=== PATIENT | female | born 1970 | race Asian ===

== ENCOUNTER → 2018-06-19 11:48 | Outpatient (CLI) | payer OTHER, SELFPAY ==
--- NOTE | 2018-06-19 | DI.MRI.S_ITS ---
PROCEDURE: MR SHOULDER RT WO CON INDICATIONS: RIGHT SHOULDER PAIN TECHNIQUE: Noncontrast oblique coronal T2 fast spin echo with fat saturation, oblique sagittal T1 spin echo and T2 fast spin echo with fat saturation, axial T1 spin echo and T2 fast spin echo with fat saturation through the shoulder. COMPARISON: [facility] [place], CR, XR SHOULDER 2+ VIEWS RIGHT, 06/08/2018, 13:16. FINDINGS: Image quality: Severely degraded by motion artifact, despite multiple attempts. Rotator cuff: Rotator cuff not well evaluated due to to motion degradation of images however there is a full-thickness tear of the supraspinatus tendon measuring 1.3 cm and the AP dimension as seen on sagittal image 8 series 13 and measures 1.4 cm on coronal image 9 series 12. Infraspinatus tendinopathy is present with interstitial tearing and partial thickness articular and bursal sided tear. The teres minor appears grossly intact. Subscapularis tendinopathy and thickening is seen, best on the axial images. There is borderline atrophy of the supraspinatus muscle Bones and bursae: No bone marrow contusions or fractures. Moderate acromioclavicular joint degeneration. The acromion demonstrates conventional anatomy, without an os acromiale. Capsule and soft tissues: The labrum is not well evaluated in the presence of severe motion artifact. There is probable circumferential fraying although the exam is essentially nondiagnostic for labral tear The long head of the biceps tendon demonstrates normal location and morphology. The rotator interval appears normal, without fibrosis. The coracohumeral ligament is normal in thickness. IMPRESSION: Severely motion degraded examination. Full-thickness tear of the supraspinatus tendon, with borderline muscle atrophy as discussed above. Infraspinatus tendinopathy, with partial thickness articular and bursal sided tear Subscapularis tendinopathy and thickening. Dictated by: Melvin Perdomo M.D. on 06/19/2018 at 12:48 Approved by: Melvin Perdomo M.D. on 06/19/2018 at 13:02
== END ==
PROVIDERS: Visit Provider Orthopaedic Surgery
DX: S46.011A Strain of muscle(s) and tendon(s) of the rotator cuff of right shoulder, initial encounter (principal); M25.511 Pain in right shoulder
CPT/HCPCS: 73221

== ENCOUNTER → 2020-10-27 11:10 | Outpatient (CLI) | payer OTHER, SELFPAY ==
[2020-10-27] MEDS: COVID-19 VACC #1, MRNA(MOD) 100 MCG/0.5 ML VIAL IM (11:14)
== END ==
PROVIDERS: Visit Provider Internal Medicine
DX: Z23 Encounter for immunization (principal)
CPT/HCPCS: 0011A; 91301

== ENCOUNTER → 2020-11-24 11:02 | Outpatient (CLI) | payer OTHER, SELFPAY ==
[2020-11-24] MEDS: COVID-19 VACC #2, MRNA(MOD) 100 MCG/0.5 ML VIAL IM (11:13)
== END ==
PROVIDERS: Visit Provider Internal Medicine
DX: Z23 Encounter for immunization (principal)
CPT/HCPCS: 0012A; 91301

== ENCOUNTER 2025-06-09 13:29 | Inpatient (IN) | payer OTHER, SELFPAY ==
[2025-06-09] VITALS (25 sets, daily range): BP systolic 108–156; BP diastolic 57–83; PULSE 80–105; RESP 8–65; TEMP 37–39.3; O2SAT 89–98; BMI 30.2
--- NOTE | 2025-06-09 13:50 | EKG_ITS ---
[facility] [address] [address] Test Date: 2025-06-09 Pat Name: Gerhard Echevarria Department: [facility] Room: Gender: Female Senior [employer]: : 1970 Requested By: Order Number: [id number] Reading MD: Vaughn Barboza MD Measurements Intervals [place] Rate: 98 P: 70 TX: 158 QRS: 61 QRSD: 86 T: 60 QT: 324 QTc: 413 Interpretive Statements Normal sinus rhythm Electronically Signed On 06-09-2025 14:36:49 PST by Vaughn Barboza MD
--- NOTE | 2025-06-09 13:50 | DI.RAD.S_ITS ---
PROCEDURE: XR CHEST 1V INDICATIONS: suspected sepsis TECHNIQUE: One view of the chest was acquired. COMPARISON: None. FINDINGS: Moderate bilateral diffuse peribronchial thickening and patchy opacities most notably in the lower lobes. Bronchopneumonia, early findings of pneumonia, viral infection, or other process should be considered. Follow-up is needed. Mildly enlarged cardiopericardial silhouette and mildly prominent mary, pulmonary vascular congestion, possible CHF and/or hilar lymph nodes. Right apical pleural thickening/scarring. No pneumothorax, no pleural effusion no lobar consolidation. IMPRESSION: Moderate peribronchial thickening and patchy opacities as discussed above. Mildly enlarged cardiopericardial silhouette, possible CHF. Follow-up is needed Dictated by: Nicholas Fritz M.D. on 06/09/2025 at 15:40 Approved by: Nicholas Fritz M.D. on 06/09/2025 at 15:43
--- NOTE | 2025-06-09 13:53 | DI.CT.S_ITS ---
PROCEDURE: CT CHEST ABD PEL W CON INDICATIONS: nausea/vomiting, fever and back pain TECHNIQUE: After the administration of intravenous contrast, 5 mm thick sections acquired from the lung apices to the symphysis. 5 mm coronal and sagittal reformats were performed, with additional 7 mm MIP reformats through the lungs. For radiation dose reduction, the following was used: automated exposure control, adjustment of mA and/or kV according to patient size. COMPARISON: None. FINDINGS: Image quality: Excellent. Some images are limited by patient motion, respiratory, beam hardening artifacts CHEST: Abnormal appearance with areas of atelectasis/consolidation, bronchiectasis most notably in the right upper lobe medially, a pickle posterior suggests chronic fibrotic changes, granulomatous disease, mycobacterium infection or other cause could be considered. Follow-up is needed. Moderate bilateral diffuse peribronchial thickening and patchy ground-glass opacities, bronchitis, viral infection, atypical pneumonia or other process should be considered. [id number] prominent pulmonary vessels, pulmonary vascular congestion, CHF with interstitial edema could be considered. Cardiomegaly with four-chamber enlargement. Small hiatal hernia with nonspecific wall thickening of the distal esophagus into the stomach, unchanged some of which may be artifact from partial nondistention although esophagitis, gastritis or other process could be considered. No pneumothorax, no pleural effusion, no pericardial effusion. Mild calcifications of the aortic arch. ABDOMEN: Markedly abnormal appearance of the right kidney with heterogeneous areas of decreased contrast enhancement suggest pyelonephritis. Large calcification right inferior pole measures up to 1.5 cm nonobstructing calculus. The right kidney is ptotic, low lying and rotated relative to the left. Mild to moderate right perinephric, proximal periureteral edema. Mild right hydronephrosis and proximal hydroureter without ureteral or bladder calculus. Findings are more likely related to urinary tract infection with ureteritis than passed stone or other cause of obstruction. Continued follow-up is needed. Left kidney enhance is normally without renal, ureteral calculus. Nonspecific wall thickening of the urinary bladder measures up to 8 mm some of which may be artifact from partial nondistention but with mild perivesicular edema raises the suspicion for cystitis. Mild nonspecific wall thickening distal rectum/anus commonly artifact from partial nondistention although proctitis, hemorrhoids or other anorectal lesion could be considered. Appendix is not nondilated within normal limits without CT evidence of appendicitis. Liver: Liver is normal in size. No CT evidence of focal hepatic lesion. Gallbladder: No radiopaque gallstones or wall thickening. Biliary ducts: No biliary dilation. Pancreas: No ductal dilation. Spleen: Size is within normal limits. Adrenal Glands: No adrenal nodules. Stomach and Bowel: Normal caliber, without significant wall thickening. Ventral Wall: No significant ventral hernia. Abdominal Nodes: No retroperitoneal or mesenteric adenopathy by size criteria. Vessels: Aorta and inferior vena cava are normal in size. PELVIS: Pelvic Organs: Unremarkable. Pelvic Nodes: No enlarged lymph nodes. Miscellaneous: No inguinal hernias are seen. IMPRESSION: Abnormal appearance of the right kidney as discussed above suspicious for pyelonephritis. Follow-up is needed. Nonobstructing right renal calculus. Wall thickening of the urinary bladder may indicate cystitis. In the chest, mild cardiomegaly, pulmonary vascular congestion, peribronchial thickening and patchy opacities as discussed above. Bronchiectasis and areas of atelectasis, consolidation and fibrotic changes in the right upper lobe as discussed above. Other findings as above. Dictated by: Nicholas Fritz M.D. on 06/09/2025 at 16:43 Approved by: Nicholas Fritz M.D. on 06/09/2025 at 16:52
--- NOTE | 2025-06-09 13:57 | ED.SEPSIS ---
HPI - Sepsis <PAM Davis Last Filed: 06/09/25 19:48> General Chief Complaint: Upper Respiratory Symptoms Mode of arrival: Wheelchair Source: patient Evaluation Sepsis Screen: Possible Severe Sepsis Risk Sepsis Infection Criteria Present: Suspected New Infection Sepsis Onset Time: 13:58 Narrative: Ms. Swathi Cloud is a pleasant 54-year-old female, speaks [employer], with a past medical history of hypertension, hyperlipidemia has not seen a doctor in over a year, is not taking any medications, possibly is supposed to be on a blood thinner who presents to the emergency department with her son for feeling sick x3 days. Patient reports she has been having shaking chills, right-sided upper back/flank pain, nausea vomiting and coughing. She is unable to keep down any food or water due to nonbloody nausea and vomiting. She is feeling short of breath. She denies chest pain diarrhea or constipation. Hospital supplied natural resources instructor is used for history but it is somewhat limited. Upon further history, it appears that patient has a history of issues with her gallbladder is where as initially I was informed that she had her gallbladder removed. <Magnolia Gerard DO - Last Filed: 06/10/25 01:56> Evaluation Narrative: Ms. Swathi Cloud is a pleasant 54-year-old female, speaks [employer], with a past medical history of hypertension, hyperlipidemia has not seen a doctor in over a year, is not taking any medications, possibly is supposed to be on a blood thinner who presents to the emergency department with her son for feeling sick x3 days. Patient reports she has been having shaking chills, right-sided upper back/flank pain, nausea vomiting and coughing. She is unable to keep down any food or water due to nonbloody nausea and vomiting. She is feeling short of breath. She denies chest pain diarrhea or constipation. Hospital supplied natural resources instructor is used for history but it is somewhat limited. Review of Systems <Carrie Witt PA-C - Last Filed: 06/09/25 19:48> Review of Systems ROS Unobtainable: All systems reviewed & are unremarkable except as noted in HPI and below Patient History <PAM Davis Last Filed: 06/09/25 19:48> Social History household members: spouse, family and children Smoking Status: Never smoker alcohol intake: never Smoking Status: Never smoker Exam <Carrie Witt PA-C - Last Filed: 06/09/25 19:48> Narrative Exam Narrative: GENERAL: 54 year old patient appears stated age. Well-developed patient. HEAD: Atraumatic. Normocephalic. EYES: PERRL. Extraocular motions intact. No scleral icterus. No injection or drainage. ENT: Nose without bleeding, purulent drainage. Throat with mild posterior oropharyngeal erythema, uvula is midline, airway is patent. NECK: Trachea midline. Cervical ROM intact. CARDIOVASCULAR: Increased rate and regular rhythm. RESPIRATORY: ?Increased respiratory rate and effort. Inspiratory crackles in right lower lobe with expiratory wheezing. GASTROINTESTINAL: Abdominal tenderness and right CVA region and right upper quadrant of the abdomen. Bowel sounds present. No rebound or guarding. EXTREMITIES: No LE edema. Brisk cap refill on fingertips. BACK: Reported right-sided thoracic pain and tenderness. No midline tenderness. NEURO: Alert, oriented, difficult to obtain history due to language barrier even with hospital natural resources instructor. No facial asymmetry. SKIN: No rash or erythema of visible areas Initial Vital Signs Initial Vital Signs: Vital Signs Temperature 102.7 F H 06/09/25 13:46 Pulse Rate 105 H 06/09/25 13:46 Respiratory Rate 28 H 06/09/25 13:46 Blood Pressure 156/83 H 06/09/25 13:46 Pulse Oximetry 97 06/09/25 13:46 Oxygen Delivery Method Room Air 06/09/25 13:46 <Rimma Candelaria, - Last Filed: 06/11/25 00:23> Initial Vital Signs Initial Vital Signs: Vital Signs Temperature 102.7 F H 06/09/25 13:46 Pulse Rate 105 H 06/09/25 13:46 Respiratory Rate 28 H 06/09/25 13:46 Blood Pressure 156/83 H 06/09/25 13:46 Pulse Oximetry 97 06/09/25 13:46 Oxygen Delivery Method Room Air 06/09/25 13:46 <Magnolia Gerard DO - Last Filed: 06/10/25 01:56> Initial Vital Signs Initial Vital Signs: Vital Signs Temperature 102.7 F H 06/09/25 13:46 Pulse Rate 105 H 06/09/25 13:46 Respiratory Rate 28 H 06/09/25 13:46 Blood Pressure 156/83 H 06/09/25 13:46 Pulse Oximetry 97 06/09/25 13:46 Oxygen Delivery Method Room Air 06/09/25 13:46 Course <Carrie Witt PA-C - Last Filed: 06/09/25 19:48> Orders Ordered: Acetaminophen (Acetaminophen 325 Mg Tablet) 650 mg PO Q6H PRN PRN Reason: Fever/Mild Pain (1-3) Last Admin: 06/10/25 19:01 Dose: 650 mg Documented By: Admin: 06/10/25 10:15 Dose: 650 mg Documented By: ALEC Hydrocodone Bitart/Acetaminophen (Hydrocodone/Acet 5/325 Tablet) 1 tab PO Q4H PRN PRN Reason: Pain, Moderate (4-6) Albuterol (Albuterol 2.5 Mg/3 Ml Neb (Adult)) 2.5 mg INH [id number] PRN PRN Reason: Shortness Of Breath Calcium Carbonate (Calcium Carbonate 500 Mg Tab) 1,000 mg PO Q4HR PRN PRN Reason: Dyspepsia Last Admin: 06/10/25 10:14 Dose: 1,000 mg Documented By: ALEC Enoxaparin Sodium (Enoxaparin 40 Mg/0.4 Ml Syringe) 40 mg SUBCUT DAILY [facility] Last Admin: 06/10/25 10:15 Dose: 40 mg Documented By: ALEC Sodium Chloride (Normal Saline 0.45%) 1,000 mls @ 100 mls/hr IV CONT [facility] Last Admin: 06/10/25 23:03 Dose: 100 mls/hr Documented By: Infusion: 06/10/25 22:25 Dose: Infused Documented By: Admin: 06/10/25 12:25 Dose: 100 mls/hr Documented By: Infusion: 06/10/25 12:25 Dose: Infused Documented By: Admin: 06/10/25 02:28 Dose: 100 mls/hr Documented By: Ceftriaxone Sodium 2,000 mg/ (Sodium Chloride) 100 mls @ 200 mls/hr IV Q24H [facility] Last Admin: 06/10/25 23:36 Dose: 200 mls/hr Documented By: ZULEIKA Morphine Sulfate (Morphine 4 Mg/Ml Inj) 3 mg IV Q2HR PRN PRN Reason: Pain, Severe (7-10) Naloxone HCl (Naloxone 0.4 Mg/Ml Vial) 0.2 mg IV Q2MIN PRN PRN Reason: Opiate Reversal Ondansetron HCl (Ondansetron 4 Mg Odt) 4 mg PO NOW PRN PRN Reason: Nausea And Vomiting Ondansetron HCl (Ondansetron 4 Mg/2 Ml Inj) 4 mg IV Q8HR PRN PRN Reason: Nausea And Vomiting Sodium Chloride (Sodium Chloride 0.9% Flush) 10 ml IV PRN PRN PRN Reason: Flush Sodium Chloride (Sodium Chloride 0.9% Flush) 10 ml IV BID TAWANNA Last Admin: 06/10/25 21:05 Dose: 10 ml Documented By: Admin: 06/10/25 10:15 Dose: 10 ml Documented By: ALEC Discontinued Medications Albuterol/Ipratropium (Albuterol/Ipratropium 3 Ml Ampul) 3 ml INH NOW ONE Stop: 06/09/25 13:57 Last Admin: 06/09/25 14:07 Dose: 3 ml Documented By: CRISTO Azithromycin (Azithromycin 250 Mg Tablet) 500 mg PO NOW ONE Stop: 06/09/25 17:03 Last Admin: 06/09/25 17:12 Dose: 500 mg Documented By: LISANDRA Al Hydrox/Mg Hydrox/Simethicone 30 ml/ Lidocaine HCl 15 ml 0 ml PO NOW ONE Stop: 06/10/25 12:21 Last Admin: 06/10/25 12:32 Dose: 45 ml Documented By: ALEC Sodium Chloride (Normal Saline 0.9%) 1,000 mls @ 1,000 mls/hr IV BOLUS ONE Stop: 06/09/25 14:48 Last Admin: 06/09/25 14:20 Dose: Not Given Documented By: CRISTO Sodium Chloride (Normal Saline 0.9%) 2,041.17 mls @ 1,360.78 mls/hr 30 ml/kg infuse over 90 min (2041.17 ml) IV NOW ONE Stop: 06/09/25 15:25 Last Infusion: 06/09/25 15:55 Dose: Infused Documented By: Admin: 06/09/25 14:08 Dose: 1,360.78 mls/hr Documented By: CRISTO Ceftriaxone Sodium 1,000 mg/ (Sodium Chloride) 100 mls @ 200 mls/hr IV NOW ONE Stop: 06/09/25 13:57 Last Infusion: 06/09/25 14:46 Dose: Infused Documented By: Admin: 06/09/25 14:08 Dose: 200 mls/hr Documented By: CRISTO Acetaminophen (Ofirmev) 1,000 mg in 100 mls @ 400 mls/hr IV NOW ONE Stop: 06/09/25 14:11 Last Infusion: 06/09/25 14:40 Dose: Infused Documented By: Admin: 06/09/25 14:08 Dose: 400 mls/hr Documented By: CRISTO Ceftriaxone Sodium 1,000 mg/ (Sodium Chloride) 100 mls @ 200 mls/hr IV NOW ONE Stop: 06/10/25 00:48 Last Infusion: 06/10/25 01:37 Dose: Infused Documented By: Admin: 06/10/25 00:59 Dose: 200 mls/hr Documented By: REX Ketorolac Tromethamine (Ketorolac 30 Mg/Ml Vial) 15 mg IV NOW ONE Stop: 06/10/25 00:48 Last Admin: 06/10/25 00:59 Dose: 15 mg Documented By: REX Morphine Sulfate (Morphine 4 Mg/Ml Inj) 4 mg IV NOW ONE Stop: 06/09/25 15:18 Last Admin: 06/09/25 15:25 Dose: 4 mg Documented By: LISANDRA Morphine Sulfate (Morphine 4 Mg/Ml Inj) 4 mg IV NOW ONE Stop: 06/09/25 18:23 Last Admin: 06/09/25 18:27 Dose: 4 mg Documented By: LISANDRA Ondansetron HCl (Ondansetron 4 Mg/2 Ml Inj) 4 mg IV NOW PRN PRN Reason: Nausea And Vomiting Last Admin: 06/09/25 14:07 Dose: 4 mg Documented By: CRISTO Ondansetron HCl (Ondansetron 4 Mg/2 Ml Inj) 4 mg IV NOW ONE Stop: 06/09/25 15:13 Last Admin: 06/09/25 15:18 Dose: 4 mg Documented By: LISANDRA Ondansetron HCl (Ondansetron 4 Mg/2 Ml Inj) 4 mg IV NOW ONE Stop: 06/09/25 21:21 Last Admin: 06/09/25 21:25 Dose: 4 mg Documented By: LS Potassium Chloride (Potassium Chloride 20 Meq Tab) 40 meq PO NOW ONE Stop: 06/10/25 11:16 Last Admin: 06/10/25 12:32 Dose: 40 meq Documented By: ALEC Vital Signs Vital signs: Vital Signs - 8 hr 06/09/25 18:00 06/09/25 18:00 06/09/25 18:30 Pulse Rate 80 Respiratory Rate 21 Blood Pressure 121/68 122/65 Pulse Oximetry 97 Oxygen Delivery Method Oxygen Flow Rate 06/09/25 18:30 06/09/25 19:00 06/09/25 19:00 Pulse Rate 86 81 Respiratory Rate 21 26 H Blood Pressure 118/75 Pulse Oximetry 94 97 Oxygen Delivery Method Nasal Cannula Oxygen Flow Rate 1 06/09/25 19:30 06/09/25 19:30 06/09/25 20:00 Pulse Rate 81 80 Respiratory Rate 27 H 15 Blood Pressure 109/62 Pulse Oximetry 96 96 Oxygen Delivery Method Nasal Cannula Nasal Cannula Oxygen Flow Rate 1 1 06/09/25 20:00 06/09/25 21:05 06/09/25 21:11 Pulse Rate 92 H Respiratory Rate Blood Pressure 111/67 144/81 H Pulse Oximetry Oxygen Delivery Method Oxygen Flow Rate 06/09/25 21:11 06/09/25 21:30 06/09/25 21:30 Pulse Rate 85 84 Respiratory Rate 32 H 29 H Blood Pressure 132/76 Pulse Oximetry 96 97 Oxygen Delivery Method Nasal Cannula Nasal Cannula Oxygen Flow Rate 1 1 06/09/25 22:00 06/09/25 22:00 06/09/25 22:30 Pulse Rate 85 Respiratory Rate 29 H Blood Pressure 133/72 122/66 Pulse Oximetry 96 Oxygen Delivery Method Nasal Cannula Oxygen Flow Rate 1 06/09/25 22:30 06/09/25 23:00 06/09/25 23:00 Pulse Rate 83 85 Respiratory Rate 14 30 H Blood Pressure 120/69 Pulse Oximetry 98 95 Oxygen Delivery Method Nasal Cannula Nasal Cannula Oxygen Flow Rate 1 1 06/09/25 23:30 06/09/25 23:30 06/10/25 00:00 Pulse Rate 87 Respiratory Rate 31 H Blood Pressure 122/67 117/58 L Pulse Oximetry 96 Oxygen Delivery Method Nasal Cannula Oxygen Flow Rate 1 06/10/25 00:00 06/10/25 00:13 06/10/25 00:13 Pulse Rate 84 84 Respiratory Rate 39 H 30 H Blood Pressure 115/58 L Pulse Oximetry 96 95 Oxygen Delivery Method Nasal Cannula Nasal Cannula Oxygen Flow Rate 1 1 06/10/25 00:30 06/10/25 00:30 Pulse Rate 81 Respiratory Rate 27 H Blood Pressure 116/68 Pulse Oximetry 96 Oxygen Delivery Method Nasal Cannula Oxygen Flow Rate 1 <Rimma Candelaria, DO - Last Filed: 06/11/25 00:23> Orders Ordered: Acetaminophen (Acetaminophen 325 Mg Tablet) 650 mg PO Q6H PRN PRN Reason: Fever/Mild Pain (1-3) Last Admin: 06/10/25 19:01 Dose: 650 mg Documented By: Admin: 06/10/25 10:15 Dose: 650 mg Documented By: ALEC Hydrocodone Bitart/Acetaminophen (Hydrocodone/Acet 5/325 Tablet) 1 tab PO Q4H PRN PRN Reason: Pain, Moderate (4-6) Albuterol (Albuterol 2.5 Mg/3 Ml Neb (Adult)) 2.5 mg INH [id number] PRN PRN Reason: Shortness Of Breath Calcium Carbonate (Calcium Carbonate 500 Mg Tab) 1,000 mg PO Q4HR PRN PRN Reason: Dyspepsia Last Admin: 06/10/25 10:14 Dose: 1,000 mg Documented By: ALEC Enoxaparin Sodium (Enoxaparin 40 Mg/0.4 Ml Syringe) 40 mg SUBCUT DAILY [facility] Last Admin: 06/10/25 10:15 Dose: 40 mg Documented By: ALEC Sodium Chloride (Normal Saline 0.45%) 1,000 mls @ 100 mls/hr IV CONT [facility] Last Admin: 06/10/25 23:03 Dose: 100 mls/hr Documented By: Infusion: 06/10/25 22:25 Dose: Infused Documented By: Admin: 06/10/25 12:25 Dose: 100 mls/hr Documented By: Infusion: 06/10/25 12:25 Dose: Infused Documented By: Admin: 06/10/25 02:28 Dose: 100 mls/hr Documented By: Ceftriaxone Sodium 2,000 mg/ (Sodium Chloride) 100 mls @ 200 mls/hr IV Q24H [facility] Last Admin: 06/10/25 23:36 Dose: 200 mls/hr Documented By: ZULEIKA Morphine Sulfate (Morphine 4 Mg/Ml Inj) 3 mg IV Q2HR PRN PRN Reason: Pain, Severe (7-10) Naloxone HCl (Naloxone 0.4 Mg/Ml Vial) 0.2 mg IV Q2MIN PRN PRN Reason: Opiate Reversal Ondansetron HCl (Ondansetron 4 Mg Odt) 4 mg PO NOW PRN PRN Reason: Nausea And Vomiting Ondansetron HCl (Ondansetron 4 Mg/2 Ml Inj) 4 mg IV Q8HR PRN PRN Reason: Nausea And Vomiting Sodium Chloride (Sodium Chloride 0.9% Flush) 10 ml IV PRN PRN PRN Reason: Flush Sodium Chloride (Sodium Chloride 0.9% Flush) 10 ml IV BID TAWANNA Last Admin: 06/10/25 21:05 Dose: 10 ml Documented By: Admin: 06/10/25 10:15 Dose: 10 ml Documented By: ALEC Discontinued Medications Albuterol/Ipratropium (Albuterol/Ipratropium 3 Ml Ampul) 3 ml INH NOW ONE Stop: 06/09/25 13:57 Last Admin: 06/09/25 14:07 Dose: 3 ml Documented By: CRISTO Azithromycin (Azithromycin 250 Mg Tablet) 500 mg PO NOW ONE Stop: 06/09/25 17:03 Last Admin: 06/09/25 17:12 Dose: 500 mg Documented By: LISANDRA Al Hydrox/Mg Hydrox/Simethicone 30 ml/ Lidocaine HCl 15 ml 0 ml PO NOW ONE Stop: 06/10/25 12:21 Last Admin: 06/10/25 12:32 Dose: 45 ml Documented By: ALEC Sodium Chloride (Normal Saline 0.9%) 1,000 mls @ 1,000 mls/hr IV BOLUS ONE Stop: 06/09/25 14:48 Last Admin: 06/09/25 14:20 Dose: Not Given Documented By: CRISTO Sodium Chloride (Normal Saline 0.9%) 2,041.17 mls @ 1,360.78 mls/hr 30 ml/kg infuse over 90 min (2041.17 ml) IV NOW ONE Stop: 06/09/25 15:25 Last Infusion: 06/09/25 15:55 Dose: Infused Documented By: Admin: 06/09/25 14:08 Dose: 1,360.78 mls/hr Documented By: CRISTO Ceftriaxone Sodium 1,000 mg/ (Sodium Chloride) 100 mls @ 200 mls/hr IV NOW ONE Stop: 06/09/25 13:57 Last Infusion: 06/09/25 14:46 Dose: Infused Documented By: Admin: 06/09/25 14:08 Dose: 200 mls/hr Documented By: CRISTO Acetaminophen (Ofirmev) 1,000 mg in 100 mls @ 400 mls/hr IV NOW ONE Stop: 06/09/25 14:11 Last Infusion: 06/09/25 14:40 Dose: Infused Documented By: Admin: 06/09/25 14:08 Dose: 400 mls/hr Documented By: CRISTO Ceftriaxone Sodium 1,000 mg/ (Sodium Chloride) 100 mls @ 200 mls/hr IV NOW ONE Stop: 06/10/25 00:48 Last Infusion: 06/10/25 01:37 Dose: Infused Documented By: Admin: 06/10/25 00:59 Dose: 200 mls/hr Documented By: REX Ketorolac Tromethamine (Ketorolac 30 Mg/Ml Vial) 15 mg IV NOW ONE Stop: 06/10/25 00:48 Last Admin: 06/10/25 00:59 Dose: 15 mg Documented By: REX Morphine Sulfate (Morphine 4 Mg/Ml Inj) 4 mg IV NOW ONE Stop: 06/09/25 15:18 Last Admin: 06/09/25 15:25 Dose: 4 mg Documented By: LISANDRA Morphine Sulfate (Morphine 4 Mg/Ml Inj) 4 mg IV NOW ONE Stop: 06/09/25 18:23 Last Admin: 06/09/25 18:27 Dose: 4 mg Documented By: LISANDRA Ondansetron HCl (Ondansetron 4 Mg/2 Ml Inj) 4 mg IV NOW PRN PRN Reason: Nausea And Vomiting Last Admin: 06/09/25 14:07 Dose: 4 mg Documented By: CRISTO Ondansetron HCl (Ondansetron 4 Mg/2 Ml Inj) 4 mg IV NOW ONE Stop: 06/09/25 15:13 Last Admin: 06/09/25 15:18 Dose: 4 mg Documented By: LISANDRA Ondansetron HCl (Ondansetron 4 Mg/2 Ml Inj) 4 mg IV NOW ONE Stop: 06/09/25 21:21 Last Admin: 06/09/25 21:25 Dose: 4 mg Documented By: REX Potassium Chloride (Potassium Chloride 20 Meq Tab) 40 meq PO NOW ONE Stop: 06/10/25 11:16 Last Admin: 06/10/25 12:32 Dose: 40 meq Documented By: ALEC Vital Signs Vital signs: Vital Signs - 8 hr 06/09/25 18:00 06/09/25 18:00 06/09/25 18:30 Pulse Rate 80 Respiratory Rate 21 Blood Pressure 121/68 122/65 Pulse Oximetry 97 Oxygen Delivery Method Oxygen Flow Rate 06/09/25 18:30 06/09/25 19:00 06/09/25 19:00 Pulse Rate 86 81 Respiratory Rate 21 26 H Blood Pressure 118/75 Pulse Oximetry 94 97 Oxygen Delivery Method Nasal Cannula Oxygen Flow Rate 1 06/09/25 19:30 06/09/25 19:30 06/09/25 20:00 Pulse Rate 81 80 Respiratory Rate 27 H 15 Blood Pressure 109/62 Pulse Oximetry 96 96 Oxygen Delivery Method Nasal Cannula Nasal Cannula Oxygen Flow Rate 1 1 06/09/25 20:00 06/09/25 21:05 06/09/25 21:11 Pulse Rate 92 H Respiratory Rate Blood Pressure 111/67 144/81 H Pulse Oximetry Oxygen Delivery Method Oxygen Flow Rate 06/09/25 21:11 06/09/25 21:30 06/09/25 21:30 Pulse Rate 85 84 Respiratory Rate 32 H 29 H Blood Pressure 132/76 Pulse Oximetry 96 97 Oxygen Delivery Method Nasal Cannula Nasal Cannula Oxygen Flow Rate 1 1 06/09/25 22:00 06/09/25 22:00 06/09/25 22:30 Pulse Rate 85 Respiratory Rate 29 H Blood Pressure 133/72 122/66 Pulse Oximetry 96 Oxygen Delivery Method Nasal Cannula Oxygen Flow Rate 1 06/09/25 22:30 06/09/25 23:00 06/09/25 23:00 Pulse Rate 83 85 Respiratory Rate 14 30 H Blood Pressure 120/69 Pulse Oximetry 98 95 Oxygen Delivery Method Nasal Cannula Nasal Cannula Oxygen Flow Rate 1 1 06/09/25 23:30 06/09/25 23:30 06/10/25 00:00 Pulse Rate 87 Respiratory Rate 31 H Blood Pressure 122/67 117/58 L Pulse Oximetry 96 Oxygen Delivery Method Nasal Cannula Oxygen Flow Rate 1 06/10/25 00:00 06/10/25 00:13 06/10/25 00:13 Pulse Rate 84 84 Respiratory Rate 39 H 30 H Blood Pressure 115/58 L Pulse Oximetry 96 95 Oxygen Delivery Method Nasal Cannula Nasal Cannula Oxygen Flow Rate 1 1 06/10/25 00:30 06/10/25 00:30 Pulse Rate 81 Respiratory Rate 27 H Blood Pressure 116/68 Pulse Oximetry 96 Oxygen Delivery Method Nasal Cannula Oxygen Flow Rate 1 <Magnolia Gerard, DO - Last Filed: 06/10/25 01:56> Orders Ordered: Acetaminophen (Acetaminophen 325 Mg Tablet) 650 mg PO Q6H PRN PRN Reason: Fever/Mild Pain (1-3) Last Admin: 06/10/25 19:01 Dose: 650 mg Documented By: Admin: 06/10/25 10:15 Dose: 650 mg Documented By: ALEC Hydrocodone Bitart/Acetaminophen (Hydrocodone/Acet 5/325 Tablet) 1 tab PO Q4H PRN PRN Reason: Pain, Moderate (4-6) Albuterol (Albuterol 2.5 Mg/3 Ml Neb (Adult)) 2.5 mg INH [id number] PRN PRN Reason: Shortness Of Breath Calcium Carbonate (Calcium Carbonate 500 Mg Tab) 1,000 mg PO Q4HR PRN PRN Reason: Dyspepsia Last Admin: 06/10/25 10:14 Dose: 1,000 mg Documented By: ALEC Enoxaparin Sodium (Enoxaparin 40 Mg/0.4 Ml Syringe) 40 mg SUBCUT DAILY [facility] Last Admin: 06/10/25 10:15 Dose: 40 mg Documented By: ALEC Sodium Chloride (Normal Saline 0.45%) 1,000 mls @ 100 mls/hr IV CONT [facility] Last Admin: 06/10/25 23:03 Dose: 100 mls/hr Documented By: Infusion: 06/10/25 22:25 Dose: Infused Documented By: Admin: 06/10/25 12:25 Dose: 100 mls/hr Documented By: Infusion: 06/10/25 12:25 Dose: Infused Documented By: Admin: 06/10/25 02:28 Dose: 100 mls/hr Documented By: Ceftriaxone Sodium 2,000 mg/ (Sodium Chloride) 100 mls @ 200 mls/hr IV Q24H [facility] Last Admin: 06/10/25 23:36 Dose: 200 mls/hr Documented By: ZULEIKA Morphine Sulfate (Morphine 4 Mg/Ml Inj) 3 mg IV Q2HR PRN PRN Reason: Pain, Severe (7-10) Naloxone HCl (Naloxone 0.4 Mg/Ml Vial) 0.2 mg IV Q2MIN PRN PRN Reason: Opiate Reversal Ondansetron HCl (Ondansetron 4 Mg Odt) 4 mg PO NOW PRN PRN Reason: Nausea And Vomiting Ondansetron HCl (Ondansetron 4 Mg/2 Ml Inj) 4 mg IV Q8HR PRN PRN Reason: Nausea And Vomiting Sodium Chloride (Sodium Chloride 0.9% Flush) 10 ml IV PRN PRN PRN Reason: Flush Sodium Chloride (Sodium Chloride 0.9% Flush) 10 ml IV BID TAWANNA Last Admin: 06/10/25 21:05 Dose: 10 ml Documented By: Admin: 06/10/25 10:15 Dose: 10 ml Documented By: ALEC Discontinued Medications Albuterol/Ipratropium (Albuterol/Ipratropium 3 Ml Ampul) 3 ml INH NOW ONE Stop: 06/09/25 13:57 Last Admin: 06/09/25 14:07 Dose: 3 ml Documented By: CRISTO Azithromycin (Azithromycin 250 Mg Tablet) 500 mg PO NOW ONE Stop: 06/09/25 17:03 Last Admin: 06/09/25 17:12 Dose: 500 mg Documented By: LISANDRA Al Hydrox/Mg Hydrox/Simethicone 30 ml/ Lidocaine HCl 15 ml 0 ml PO NOW ONE Stop: 06/10/25 12:21 Last Admin: 06/10/25 12:32 Dose: 45 ml Documented By: ALEC Sodium Chloride (Normal Saline 0.9%) 1,000 mls @ 1,000 mls/hr IV BOLUS ONE Stop: 06/09/25 14:48 Last Admin: 06/09/25 14:20 Dose: Not Given Documented By: CRISTO Sodium Chloride (Normal Saline 0.9%) 2,041.17 mls @ 1,360.78 mls/hr 30 ml/kg infuse over 90 min (2041.17 ml) IV NOW ONE Stop: 06/09/25 15:25 Last Infusion: 06/09/25 15:55 Dose: Infused Documented By: Admin: 06/09/25 14:08 Dose: 1,360.78 mls/hr Documented By: CRISTO Ceftriaxone Sodium 1,000 mg/ (Sodium Chloride) 100 mls @ 200 mls/hr IV NOW ONE Stop: 06/09/25 13:57 Last Infusion: 06/09/25 14:46 Dose: Infused Documented By: Admin: 06/09/25 14:08 Dose: 200 mls/hr Documented By: CRISTO Acetaminophen (Ofirmev) 1,000 mg in 100 mls @ 400 mls/hr IV NOW ONE Stop: 06/09/25 14:11 Last Infusion: 06/09/25 14:40 Dose: Infused Documented By: Admin: 06/09/25 14:08 Dose: 400 mls/hr Documented By: CRISTO Ceftriaxone Sodium 1,000 mg/ (Sodium Chloride) 100 mls @ 200 mls/hr IV NOW ONE Stop: 06/10/25 00:48 Last Infusion: 06/10/25 01:37 Dose: Infused Documented By: Admin: 06/10/25 00:59 Dose: 200 mls/hr Documented By: REX Ketorolac Tromethamine (Ketorolac 30 Mg/Ml Vial) 15 mg IV NOW ONE Stop: 06/10/25 00:48 Last Admin: 06/10/25 00:59 Dose: 15 mg Documented By: REX Morphine Sulfate (Morphine 4 Mg/Ml Inj) 4 mg IV NOW ONE Stop: 06/09/25 15:18 Last Admin: 06/09/25 15:25 Dose: 4 mg Documented By: LISANDRA Morphine Sulfate (Morphine 4 Mg/Ml Inj) 4 mg IV NOW ONE Stop: 06/09/25 18:23 Last Admin: 06/09/25 18:27 Dose: 4 mg Documented By: LISANDRA Ondansetron HCl (Ondansetron 4 Mg/2 Ml Inj) 4 mg IV NOW PRN PRN Reason: Nausea And Vomiting Last Admin: 06/09/25 14:07 Dose: 4 mg Documented By: CRISTO Ondansetron HCl (Ondansetron 4 Mg/2 Ml Inj) 4 mg IV NOW ONE Stop: 06/09/25 15:13 Last Admin: 06/09/25 15:18 Dose: 4 mg Documented By: LISANDRA Ondansetron HCl (Ondansetron 4 Mg/2 Ml Inj) 4 mg IV NOW ONE Stop: 06/09/25 21:21 Last Admin: 06/09/25 21:25 Dose: 4 mg Documented By: REX Potassium Chloride (Potassium Chloride 20 Meq Tab) 40 meq PO NOW ONE Stop: 06/10/25 11:16 Last Admin: 06/10/25 12:32 Dose: 40 meq Documented By: ALEC Vital Signs Vital signs: Vital Signs - 8 hr 06/09/25 18:00 06/09/25 18:00 06/09/25 18:30 Pulse Rate 80 Respiratory Rate 21 Blood Pressure 121/68 122/65 Pulse Oximetry 97 Oxygen Delivery Method Oxygen Flow Rate 06/09/25 18:30 06/09/25 19:00 06/09/25 19:00 Pulse Rate 86 81 Respiratory Rate 21 26 H Blood Pressure 118/75 Pulse Oximetry 94 97 Oxygen Delivery Method Nasal Cannula Oxygen Flow Rate 1 06/09/25 19:30 06/09/25 19:30 06/09/25 20:00 Pulse Rate 81 80 Respiratory Rate 27 H 15 Blood Pressure 109/62 Pulse Oximetry 96 96 Oxygen Delivery Method Nasal Cannula Nasal Cannula Oxygen Flow Rate 1 1 06/09/25 20:00 06/09/25 21:05 06/09/25 21:11 Pulse Rate 92 H Respiratory Rate Blood Pressure 111/67 144/81 H Pulse Oximetry Oxygen Delivery Method Oxygen Flow Rate 06/09/25 21:11 06/09/25 21:30 06/09/25 21:30 Pulse Rate 85 84 Respiratory Rate 32 H 29 H Blood Pressure 132/76 Pulse Oximetry 96 97 Oxygen Delivery Method Nasal Cannula Nasal Cannula Oxygen Flow Rate 1 1 06/09/25 22:00 06/09/25 22:00 06/09/25 22:30 Pulse Rate 85 Respiratory Rate 29 H Blood Pressure 133/72 122/66 Pulse Oximetry 96 Oxygen Delivery Method Nasal Cannula Oxygen Flow Rate 1 06/09/25 22:30 06/09/25 23:00 06/09/25 23:00 Pulse Rate 83 85 Respiratory Rate 14 30 H Blood Pressure 120/69 Pulse Oximetry 98 95 Oxygen Delivery Method Nasal Cannula Nasal Cannula Oxygen Flow Rate 1 1 06/09/25 23:30 06/09/25 23:30 06/10/25 00:00 Pulse Rate 87 Respiratory Rate 31 H Blood Pressure 122/67 117/58 L Pulse Oximetry 96 Oxygen Delivery Method Nasal Cannula Oxygen Flow Rate 1 06/10/25 00:00 06/10/25 00:13 06/10/25 00:13 Pulse Rate 84 84 Respiratory Rate 39 H 30 H Blood Pressure 115/58 L Pulse Oximetry 96 95 Oxygen Delivery Method Nasal Cannula Nasal Cannula Oxygen Flow Rate 1 1 06/10/25 00:30 06/10/25 00:30 Pulse Rate 81 Respiratory Rate 27 H Blood Pressure 116/68 Pulse Oximetry 96 Oxygen Delivery Method Nasal Cannula Oxygen Flow Rate 1 Sepsis Evaluation (ED) <Carrie Witt PA-C - Last Filed: 06/09/25 19:48> Triage Screening Sepsis Screen: Possible Severe Sepsis Risk Level 1 - Infection Sepsis Infection Criteria Present: Suspected New Infection Response It is my opinion that this patient have a likely infectious etiology for meeting sepsis criteria: Does Fluid calculation based on 30 mL/kg within 1hr of criteria: ABW used Antibiotics initiated within 1 hr of Sepis dx: Yes Tissue Perfusion Reassessed within 6 hrs of infusion start time: Yes Date of Tissue Perfusion Reassessment completed: 06/09/25 Time Tissue Perfusion Reassessment completed: 17:00 MDM - Sepsis <Carrie Witt PA-C - Last Filed: 06/09/25 19:48> Medical Records Medical records narrative: NONE Lab Data 06/10/25 04:29 06/10/25 04:29 Labs: Lab Results 06/09/25 06/09/25 06/09/25 Range/Units 14:00 14:21 16:50 WBC 11.7 H (4.5-11.0) X10^3/uL RBC 5.86 H (4.0-5.2) X10^6/uL Hgb 14.5 (12.0-16.0) g/dL Hct 44.7 (36-46) % MCV 76.3 L (80-100) fL MCH 24.7 L (26-34) PG MCHC 32.4 (30-36) % RDW 14.1 (11.6-14.8) % Plt Count 190 (150-400) X10^3/uL Neut % (Auto) 88.1 H (50-75) % Lymph % (Auto) 7.1 L (25-40) % Stearns % (Auto) 4.2 (3-14) % Eos % (Auto) 0.0 L (2-4) % Baso % (Auto) 0.6 (0-2) % Neut # (Auto) 88639 H (7033-0205) /uL Lymph # (Auto) 800 L (3012-6270) /uL Stearns # (Auto) 500 (0-900) /uL Eos # (Auto) 0 (0-450) /uL Baso # (Auto) 100 (0-100) /uL PT 13.1 H (9.4-12.5) SECONDS INR 1.2 (0.9-1.3) APTT 35 (25.1-36.5) SECONDS Sodium 139 (137-145) mmol/L Potassium 3.5 (3.4-5.1) mmol/L Chloride 105 (98-107) mmol/L Carbon Dioxide 22 (22-32) mmol/L BUN 16 (7-17) mg/dL Creatinine 0.91 (0.52-1.04) mg/dL Estimated GFR > 60 (>60) mL/min BUN/Creatinine Ratio 17.6 (6-22) Glucose 119 H (70-99) mg/dL Lactate 1.2 (0.7-2.1) mmol/L Calcium 9.3 (8.4-10.2) mg/dL Total Bilirubin 2.4 H (0.2-1.3) mg/dL AST 41 H (14-36) IU/L ALT 50 H (<35) IU/L Alkaline Phosphatase 128 H (38-126) U/L Total Creatine Kinase 89 (30-135) U/L Troponin I < 0.012 (0.01-0.034) ng/mL NT-Pro-B Natriuret Pep 526 H (<125) pg/mL Total Protein 8.0 (6.3-8.2) g/dL Albumin 4.3 (3.5-5.0) g/dL Globulin 3.7 (1.7-4.1) g/dL Albumin/Globulin Ratio 1.2 (1.0-2.8) Lipase 34 (23-300) U/L Procalcitonin 6.00 H (<0.5) ng/mL Urine RBC 1-5/hpf (0-5/HPF) Urine WBC 30-100/hpf H (0-5/HPF) Ur Squamous Epith Cells 1-5 /hpf (0-5/HPF) Ur Transition Epith Cell 0-1/hpf (0-5/HPF) Urine Bacteria Few (2-10) H (None) Ur Culture Indicated? Specimen cultured Vol Urine Centrifuged 10ml (spun) A.calcoaceticus-baumannii cmplx PCR Not detected (Not Detect) Chlamy pneumoniae PCR Not detected (Not Detect) Adenovirus (PCR) Not detected (Not Detect) Bacteroides fragilis Not detected (Not Detect) B. pertussis DNA (PCR) Not detected (Not Detect) B.parapertussis DNA PCR Not detected (Not Detecte) Jennie albicans (PCR) Not detected (Not Detect) Jennie auris (PCR) Not detected (Not Detect) C. glabrata (PCR) Not detected (Not Detect) C. krusei (PCR) Not detected (Not Detect) C. parapsilosis (PCR) Not detected (Not Detect) C. tropicalis (PCR) Not detected (Not Detect) Coronavirus OC43 (PCR) Not detected (Not Detect) Coronavirus HKU1 (PCR) Not detected (Not Detect) Coronavirus 229E (PCR) Not detected (Not Detect) SARS-CoV-2 (PCR) Not detected (Not Detecte) Coronavirus NL63 (PCR) Not detected (Not Detect) C. neoform/gattii (PCR) Not detected (Not Detect) Enterobacterales (PCR) Detected (Not Detect) E. cloacae complex PCR Not detected (Not Detect) Enterococc faecalis PCR Not detected (Not Detect) Enterococc faecium PCR Not detected (Not Detect) E. coli (PCR) Detected (Not Detect) H. influenzae (PCR) Not detected (Not Detect) Human Metapneumovir PCR Not detected (Not Detect) Influenza Type A (PCR) Not detected (Not Detect) Influenza Type B (PCR) Not detected (Not Detect) Klebsiella aerogenes (PCR) Not detected (Not Detect) Klebsiella oxytoca PCR Not detected (Not Detect) Klebsiella pneumoniae Not detected (Not Detect) List. monocytogenes PCR Not detected (Not Detect) M. pneumoniae (PCR) Not detected (Not Detect) N. meningitidis (PCR) Not detected (Not Detect) Parainfluenza 1 (PCR) Not detected (Not Detect) Parainfluenza 2 (PCR) Not detected (Not Detect) Parainfluenza 3 (PCR) Not detected (Not Detect) Parainfluenza 4 (PCR) Not detected (Not Detect) Proteus species (PCR) Not detected (Not Detect) RSV (PCR) Not detected (Not Detect) Entero/Rhino (PCR) Not detected (Not Detect) Salmonella spp. (PCR) Not detected (Not Detect) Serratia marcescens PCR Not detected (Not Detect) Staphylococcus sp PCR Not detected (Not Detect) Staph aureus (PCR) Not detected (Not Detect) mecA/C & MREJ Resist Gene Not applicable (Not Detect) mecA/C-Methicil Resis Gene Not applicable (Not Detect) mcr-1 Colistin Res Gene PCR Not detected (Not Detect) Staph epidermidis (PCR) Not detected (Not Detect) Staph lugdunensis PCR Not detected (Not Detect) S. maltophilia (PCR) Not detected (Not Detect) Streptococcus sp PCR Not detected (Not Detect) Group A Strep (PCR) Not detected (Not Detect) Strep agalactiae (PCR) Not detected (Not Detect) Strep pneumoniae (PCR) Not detected (Not Detect) P. aeruginosa (PCR) Not detected (Not Detect) Ralph/B-Vanco Res Genes Not applicable (Not Detect) blaIMP Car res Gene PCR Not detected (Not Detect) KPC-Carbap Res Gene PCR Not detected (Not Detect) blaNDM Car Res Gene PCR Not detected (Not Detect) OXA-48 Carbapenem Resis Gene (PCR) Not detected (Not Detect) blaVIM Car Res Gene PCR Not detected (Not Detect) CTX-M Gene Resistance (PCR) Not detected (Not Detect) Urine Dip Bedside Urine Glucose Negative Bedside Urine Bilirubin - Negative Bedside Urine Ketone +++ 80 Urine Specific [place] 1.010 Bedside Urine Occult Blood +++ Bedside Urine pH 6.0 Bedside Urine Protein ++ 100 Bedside Urine Urobilinogen +/- 1mg Bedside Urine Nitrite + Positive Bedside Urine Leukocytes + [address] C/A/P: Radiologist's Impression: PROCEDURE: CT CHEST ABD PEL W CON INDICATIONS: nausea/vomiting, fever and back pain TECHNIQUE: After the administration of intravenous contrast, 5 mm thick sections acquired from the lung apices to the symphysis. 5 mm coronal and sagittal reformats were performed, with additional 7 mm MIP reformats through the lungs. For radiation dose reduction, the following was used: automated exposure control, adjustment of mA and/or kV according to patient size. COMPARISON: None. FINDINGS: Image quality: Excellent. Some images are limited by patient motion, respiratory, beam hardening artifacts CHEST: Abnormal appearance with areas of atelectasis/consolidation, bronchiectasis most notably in the right upper lobe medially, a pickle posterior suggests chronic fibrotic changes, granulomatous disease, mycobacterium infection or other cause could be considered. Follow-up is needed. Moderate bilateral diffuse peribronchial thickening and patchy ground-glass opacities, bronchitis, viral infection, atypical pneumonia or other process should be considered. Bryo-ba-kowsndanux prominent pulmonary vessels, pulmonary vascular congestion, CHF with interstitial edema could be considered. Cardiomegaly with four-chamber enlargement. Small hiatal hernia with nonspecific wall thickening of the distal esophagus into the stomach, unchanged some of which may be artifact from partial nondistention although esophagitis, gastritis or other process could be considered. No pneumothorax, no pleural effusion, no pericardial effusion. Mild calcifications of the aortic arch. ABDOMEN: Markedly abnormal appearance of the right kidney with heterogeneous areas of decreased contrast enhancement suggest pyelonephritis. Large calcification right inferior pole measures up to 1.5 cm nonobstructing calculus. The right kidney is ptotic, low lying and rotated relative to the left. Mild to moderate right perinephric, proximal periureteral edema. Mild right hydronephrosis and proximal hydroureter without ureteral or bladder calculus. Findings are more likely related to urinary tract infection with ureteritis than passed stone or other cause of obstruction. Continued follow-up is needed. Left kidney enhance is normally without renal, ureteral calculus. Nonspecific wall thickening of the urinary bladder measures up to 8 mm some of which may be artifact from partial nondistention but with mild perivesicular edema raises the suspicion for cystitis. Mild nonspecific wall thickening distal rectum/anus commonly artifact from partial nondistention although proctitis, hemorrhoids or other anorectal lesion could be considered. Appendix is not nondilated within normal limits without CT evidence of appendicitis. Liver: Liver is normal in size. No CT evidence of focal hepatic lesion. Gallbladder: No radiopaque gallstones or wall thickening. Biliary ducts: No biliary dilation. Pancreas: No ductal dilation. Spleen: Size is within normal limits. Adrenal Glands: No adrenal nodules. Stomach and Bowel: Normal caliber, without significant wall thickening. Ventral Wall: No significant ventral hernia. Abdominal Nodes: No retroperitoneal or mesenteric adenopathy by size criteria. Vessels: Aorta and inferior vena cava are normal in size. PELVIS: Pelvic Organs: Unremarkable. Pelvic Nodes: No enlarged lymph nodes. Miscellaneous: No inguinal hernias are seen. IMPRESSION: Abnormal appearance of the right kidney as discussed above suspicious for pyelonephritis. Follow-up is needed. Nonobstructing right renal calculus. Wall thickening of the urinary bladder may indicate cystitis. In the chest, mild cardiomegaly, pulmonary vascular congestion, peribronchial thickening and patchy opacities as discussed above. Bronchiectasis and areas of atelectasis, consolidation and fibrotic changes in the right upper lobe as discussed above. Other findings as above. Dictated by: Nicholas Fritz M.D. on 06/09/2025 at 16:43 Approved by: Nicholas Fritz M.D. on 06/09/2025 at 16:52 RUQ US: Radiologist's Impression: PROCEDURE: US ABDOMEN LIMITED INDICATIONS: sepsis; elevated LFTS; check gallbladder; has pyelo TECHNIQUE: Real-time focused scanning was performed of the abdomen, with image documentation. COMPARISON: [facility], CT, CT CHEST ABD PEL W CON, 06/09/2025, 14:48. FINDINGS: Liver measures 15 cm. Heterogeneous increased echogenicity. Unremarkable ultrasound appearance of the gallbladder. No discrete stones. CBD measures 11 mm. Mildly prominent pancreatic duct at 3 mm. Right kidney is partially seen and appears heterogeneous. Inferior right renal calculus measures 1.4 cm. IMPRESSION: Dilated CBD. Consider MRCP Unremarkable sonographic appearance of the gallbladder. Heterogeneous increased echogenicity of the liver, nonspecific possibly heterogeneous steatosis. Abdominal MRI could clarify if needed. Heterogeneous right kidney with inferior pole calculus better assessed on CT Dictated by: Andrew Song M.D. on 06/09/2025 at 18:23 Approved by: Andrew Song M.D. on 06/09/2025 at 18:26 [facility] Narrative Medical decision making narrative: 54-year-old female, speaks Tagalog, with a past medical history of hypertension, hyperlipidemia, cholecystectomy has not seen a doctor in over a year, is not taking any medications, possibly is supposed to be on a blood thinner who presents to the emergency department with her son for feeling sick x3 days. Patient reports she has been having shaking chills, right-sided upper back/flank pain, nausea vomiting and coughing. Differential diagnosis includes but is not limited to sepsis due to pneumonia, ureterolithiasis, pyelonephritis, gastroenteritis, bronchitis, etc. On exam patient is not in acute distress but she is ill-appearing, she is febrile tachycardic tachypneic, blood pressure is 156/83. She has inspiratory crackles and expiratory wheezes in the right lower lobe, she is reporting right-sided flank pain nausea and vomiting for 3 days. Sepsis order set initiated, we will treat with 30 mL/kilogram IV fluids, 1 g ceftriaxone as at this time I am concerned for possible pneumonia versus pyelo versus other in addition to IV acetaminophen and nausea medications. Upon further history taking, patient's son informed me that patient actually has not had her gallbladder removed but has had gallbladder problems in the past therefore cholecystitis is on the differential. Labs reveal elevated WBC count 11.7, normal platelets 190. Sodium 130, potassium 3.5, BUN 16 creatinine 0.91. Normal lactate 1.2. Elevated procalcitonin 6.0. Normal lipase 34. BNP is elevated 526, troponin is negative/undetectable. Patient has elevated total bilirubin 2.4, AST 41, ALT 50, alkaline phosphatase 128. Repeat physical exam reveals right upper quadrant tenderness. Patient is continuing to have nausea and additional 4 mg Zofran ordered. 1700: On reassessment of patient her pain is significantly improved, perfusion is adequate with brisk cap refill on fingertips. CT reveals abnormal appearance of right kidney suspicious for pyelonephritis, nonobstructing right renal calculus, wall thickening of the urinary bladder, in the chest there are patchy opacities. Overall workup is consistent with pyelonephritis in addition to atypical pneumonia, we will add on azithromycin, patient already received ceftriaxone. We will also obtain right upper quadrant ultrasound to rule out gallbladder abnormality, CT does not reveal abnormality however given elevated bilirubin and reported history of gallbladder problems we will assess prior to disposition. Abdominal ultrasound reveals dilated CBD, consider MRCP, otherwise unremarkable sonographic appearance of the gallbladder, there is heterogeneous increased echogenicity of the liver, nonspecific possibly heterogeneous steatosis, abdominal MRI could clarify. 1900: Discussed ultrasound result with the patient, discussed need for MRCP, she is agreeable, MRCP scheduled for a p.m. tonight, case discussed with the nighttime attending physician Dr. Gerard due ot shift change. Hospitalist supplied natural resources instructor used for all patient encounters. 1944 Dr gerard <Rimma Candelaria, DO - Last Filed: 06/11/25 00:23> Lab Data Labs: Lab Results 06/09/25 06/09/25 06/09/25 Range/Units 14:00 14:21 16:50 WBC 11.7 H (4.5-11.0) X10^3/uL RBC 5.86 H (4.0-5.2) X10^6/uL Hgb 14.5 (12.0-16.0) g/dL Hct 44.7 (36-46) % MCV 76.3 L (80-100) fL MCH 24.7 L (26-34) PG MCHC 32.4 (30-36) % RDW 14.1 (11.6-14.8) % Plt Count 190 (150-400) X10^3/uL Neut % (Auto) 88.1 H (50-75) % Lymph % (Auto) 7.1 L (25-40) % Stearns % (Auto) 4.2 (3-14) % Eos % (Auto) 0.0 L (2-4) % Baso % (Auto) 0.6 (0-2) % Neut # (Auto) 98383 H (2372-0482) /uL Lymph # (Auto) 800 L (5374-2113) /uL Stearns # (Auto) 500 (0-900) /uL Eos # (Auto) 0 (0-450) /uL Baso # (Auto) 100 (0-100) /uL PT 13.1 H (9.4-12.5) SECONDS INR 1.2 (0.9-1.3) APTT 35 (25.1-36.5) SECONDS Sodium 139 (137-145) mmol/L Potassium 3.5 (3.4-5.1) mmol/L Chloride 105 (98-107) mmol/L Carbon Dioxide 22 (22-32) mmol/L BUN 16 (7-17) mg/dL Creatinine 0.91 (0.52-1.04) mg/dL Estimated GFR > 60 (>60) mL/min BUN/Creatinine Ratio 17.6 (6-22) Glucose 119 H (70-99) mg/dL Lactate 1.2 (0.7-2.1) mmol/L Calcium 9.3 (8.4-10.2) mg/dL Total Bilirubin 2.4 H (0.2-1.3) mg/dL AST 41 H (14-36) IU/L ALT 50 H (<35) IU/L Alkaline Phosphatase 128 H (38-126) U/L Total Creatine Kinase 89 (30-135) U/L Troponin I < 0.012 (0.01-0.034) ng/mL NT-Pro-B Natriuret Pep 526 H (<125) pg/mL Total Protein 8.0 (6.3-8.2) g/dL Albumin 4.3 (3.5-5.0) g/dL Globulin 3.7 (1.7-4.1) g/dL Albumin/Globulin Ratio 1.2 (1.0-2.8) Lipase 34 (23-300) U/L Procalcitonin 6.00 H (<0.5) ng/mL Urine RBC 1-5/hpf (0-5/HPF) Urine WBC 30-100/hpf H (0-5/HPF) Ur Squamous Epith Cells 1-5 /hpf (0-5/HPF) Ur Transition Epith Cell 0-1/hpf (0-5/HPF) Urine Bacteria Few (2-10) H (None) Ur Culture Indicated? Specimen cultured Vol Urine Centrifuged 10ml (spun) A.calcoaceticus-baumannii cmplx PCR Not detected (Not Detect) Chlamy pneumoniae PCR Not detected (Not Detect) Adenovirus (PCR) Not detected (Not Detect) Bacteroides fragilis Not detected (Not Detect) B. pertussis DNA (PCR) Not detected (Not Detect) B.parapertussis DNA PCR Not detected (Not Detecte) Jennie albicans (PCR) Not detected (Not Detect) Jennie auris (PCR) Not detected (Not Detect) C. glabrata (PCR) Not detected (Not Detect) C. krusei (PCR) Not detected (Not Detect) C. parapsilosis (PCR) Not detected (Not Detect) C. tropicalis (PCR) Not detected (Not Detect) Coronavirus OC43 (PCR) Not detected (Not Detect) Coronavirus HKU1 (PCR) Not detected (Not Detect) Coronavirus 229E (PCR) Not detected (Not Detect) SARS-CoV-2 (PCR) Not detected (Not Detecte) Coronavirus NL63 (PCR) Not detected (Not Detect) C. neoform/gattii (PCR) Not detected (Not Detect) Enterobacterales (PCR) Detected (Not Detect) E. cloacae complex PCR Not detected (Not Detect) Enterococc faecalis PCR Not detected (Not Detect) Enterococc faecium PCR Not detected (Not Detect) E. coli (PCR) Detected (Not Detect) H. influenzae (PCR) Not detected (Not Detect) Human Metapneumovir PCR Not detected (Not Detect) Influenza Type A (PCR) Not detected (Not Detect) Influenza Type B (PCR) Not detected (Not Detect) Klebsiella aerogenes (PCR) Not detected (Not Detect) Klebsiella oxytoca PCR Not detected (Not Detect) Klebsiella pneumoniae Not detected (Not Detect) List. monocytogenes PCR Not detected (Not Detect) M. pneumoniae (PCR) Not detected (Not Detect) N. meningitidis (PCR) Not detected (Not Detect) Parainfluenza 1 (PCR) Not detected (Not Detect) Parainfluenza 2 (PCR) Not detected (Not Detect) Parainfluenza 3 (PCR) Not detected (Not Detect) Parainfluenza 4 (PCR) Not detected (Not Detect) Proteus species (PCR) Not detected (Not Detect) RSV (PCR) Not detected (Not Detect) Entero/Rhino (PCR) Not detected (Not Detect) Salmonella spp. (PCR) Not detected (Not Detect) Serratia marcescens PCR Not detected (Not Detect) Staphylococcus sp PCR Not detected (Not Detect) Staph aureus (PCR) Not detected (Not Detect) mecA/C & MREJ Resist Gene Not applicable (Not Detect) mecA/C-Methicil Resis Gene Not applicable (Not Detect) mcr-1 Colistin Res Gene PCR Not detected (Not Detect) Staph epidermidis (PCR) Not detected (Not Detect) Staph lugdunensis PCR Not detected (Not Detect) S. maltophilia (PCR) Not detected (Not Detect) Streptococcus sp PCR Not detected (Not Detect) Group A Strep (PCR) Not detected (Not Detect) Strep agalactiae (PCR) Not detected (Not Detect) Strep pneumoniae (PCR) Not detected (Not Detect) P. aeruginosa (PCR) Not detected (Not Detect) Ralph/B-Vanco Res Genes Not applicable (Not Detect) blaIMP Car res Gene PCR Not detected (Not Detect) KPC-Carbap Res Gene PCR Not detected (Not Detect) blaNDM Car Res Gene PCR Not detected (Not Detect) OXA-48 Carbapenem Resis Gene (PCR) Not detected (Not Detect) blaVIM Car Res Gene PCR Not detected (Not Detect) CTX-M Gene Resistance (PCR) Not detected (Not Detect) Urine Dip Bedside Urine Glucose Negative Bedside Urine Bilirubin - Negative Bedside Urine Ketone +++ 80 Urine Specific [place] 1.010 Bedside Urine Occult Blood +++ Bedside Urine pH 6.0 Bedside Urine Protein ++ 100 Bedside Urine Urobilinogen +/- 1mg Bedside Urine Nitrite + Positive Bedside Urine Leukocytes + 70 Esterase ECG Data Attestation: I personally reviewed and interpreted this ECG as follows: Interpretation: Sinus rhythm rate of 98 RI 158 QRS 868 QTC of [address]-elevation or depression. <Magnolia Gerard DO - Last Filed: 06/10/25 01:56> Lab Data Labs: Lab Results 06/09/25 06/09/25 06/09/25 Range/Units 14:00 14:21 16:50 WBC 11.7 H (4.5-11.0) X10^3/uL RBC 5.86 H (4.0-5.2) X10^6/uL Hgb 14.5 (12.0-16.0) g/dL Hct 44.7 (36-46) % MCV 76.3 L (80-100) fL MCH 24.7 L (26-34) PG MCHC 32.4 (30-36) % RDW 14.1 (11.6-14.8) % Plt Count 190 (150-400) X10^3/uL Neut % (Auto) 88.1 H (50-75) % Lymph % (Auto) 7.1 L (25-40) % Stearns % (Auto) 4.2 (3-14) % Eos % (Auto) 0.0 L (2-4) % Baso % (Auto) 0.6 (0-2) % Neut # (Auto) 55346 H (5207-2780) /uL Lymph # (Auto) 800 L (5497-2853) /uL Stearns # (Auto) 500 (0-900) /uL Eos # (Auto) 0 (0-450) /uL Baso # (Auto) 100 (0-100) /uL PT 13.1 H (9.4-12.5) SECONDS INR 1.2 (0.9-1.3) APTT 35 (25.1-36.5) SECONDS Sodium 139 (137-145) mmol/L Potassium 3.5 (3.4-5.1) mmol/L Chloride 105 (98-107) mmol/L Carbon Dioxide 22 (22-32) mmol/L BUN 16 (7-17) mg/dL Creatinine 0.91 (0.52-1.04) mg/dL Estimated GFR > 60 (>60) mL/min BUN/Creatinine Ratio 17.6 (6-22) Glucose 119 H (70-99) mg/dL Lactate 1.2 (0.7-2.1) mmol/L Calcium 9.3 (8.4-10.2) mg/dL Total Bilirubin 2.4 H (0.2-1.3) mg/dL AST 41 H (14-36) IU/L ALT 50 H (<35) IU/L Alkaline Phosphatase 128 H (38-126) U/L Total Creatine Kinase 89 (30-135) U/L Troponin I < 0.012 (0.01-0.034) ng/mL NT-Pro-B Natriuret Pep 526 H (<125) pg/mL Total Protein 8.0 (6.3-8.2) g/dL Albumin 4.3 (3.5-5.0) g/dL Globulin 3.7 (1.7-4.1) g/dL Albumin/Globulin Ratio 1.2 (1.0-2.8) Lipase 34 (23-300) U/L Procalcitonin 6.00 H (<0.5) ng/mL Urine RBC 1-5/hpf (0-5/HPF) Urine WBC 30-100/hpf H (0-5/HPF) Ur Squamous Epith Cells 1-5 /hpf (0-5/HPF) Ur Transition Epith Cell 0-1/hpf (0-5/HPF) Urine Bacteria Few (2-10) H (None) Ur Culture Indicated? Specimen cultured Vol Urine Centrifuged 10ml (spun) A.calcoaceticus-baumannii cmplx PCR Not detected (Not Detect) Chlamy pneumoniae PCR Not detected (Not Detect) Adenovirus (PCR) Not detected (Not Detect) Bacteroides fragilis Not detected (Not Detect) B. pertussis DNA (PCR) Not detected (Not Detect) B.parapertussis DNA PCR Not detected (Not Detecte) Jennie albicans (PCR) Not detected (Not Detect) Jennie auris (PCR) Not detected (Not Detect) C. glabrata (PCR) Not detected (Not Detect) C. krusei (PCR) Not detected (Not Detect) C. parapsilosis (PCR) Not detected (Not Detect) C. tropicalis (PCR) Not detected (Not Detect) Coronavirus OC43 (PCR) Not detected (Not Detect) Coronavirus HKU1 (PCR) Not detected (Not Detect) Coronavirus 229E (PCR) Not detected (Not Detect) SARS-CoV-2 (PCR) Not detected (Not Detecte) Coronavirus NL63 (PCR) Not detected (Not Detect) C. neoform/gattii (PCR) Not detected (Not Detect) Enterobacterales (PCR) Detected (Not Detect) E. cloacae complex PCR Not detected (Not Detect) Enterococc faecalis PCR Not detected (Not Detect) Enterococc faecium PCR Not detected (Not Detect) E. coli (PCR) Detected (Not Detect) H. influenzae (PCR) Not detected (Not Detect) Human Metapneumovir PCR Not detected (Not Detect) Influenza Type A (PCR) Not detected (Not Detect) Influenza Type B (PCR) Not detected (Not Detect) Klebsiella aerogenes (PCR) Not detected (Not Detect) Klebsiella oxytoca PCR Not detected (Not Detect) Klebsiella pneumoniae Not detected (Not Detect) List. monocytogenes PCR Not detected (Not Detect) M. pneumoniae (PCR) Not detected (Not Detect) N. meningitidis (PCR) Not detected (Not Detect) Parainfluenza 1 (PCR) Not detected (Not Detect) Parainfluenza 2 (PCR) Not detected (Not Detect) Parainfluenza 3 (PCR) Not detected (Not Detect) Parainfluenza 4 (PCR) Not detected (Not Detect) Proteus species (PCR) Not detected (Not Detect) RSV (PCR) Not detected (Not Detect) Entero/Rhino (PCR) Not detected (Not Detect) Salmonella spp. (PCR) Not detected (Not Detect) Serratia marcescens PCR Not detected (Not Detect) Staphylococcus sp PCR Not detected (Not Detect) Staph aureus (PCR) Not detected (Not Detect) mecA/C & MREJ Resist Gene Not applicable (Not Detect) mecA/C-Methicil Resis Gene Not applicable (Not Detect) mcr-1 Colistin Res Gene PCR Not detected (Not Detect) Staph epidermidis (PCR) Not detected (Not Detect) Staph lugdunensis PCR Not detected (Not Detect) S. maltophilia (PCR) Not detected (Not Detect) Streptococcus sp PCR Not detected (Not Detect) Group A Strep (PCR) Not detected (Not Detect) Strep agalactiae (PCR) Not detected (Not Detect) Strep pneumoniae (PCR) Not detected (Not Detect) P. aeruginosa (PCR) Not detected (Not Detect) Ralph/B-Vanco Res Genes Not applicable (Not Detect) blaIMP Car res Gene PCR Not detected (Not Detect) KPC-Carbap Res Gene PCR Not detected (Not Detect) blaNDM Car Res Gene PCR Not detected (Not Detect) OXA-48 Carbapenem Resis Gene (PCR) Not detected (Not Detect) blaVIM Car Res Gene PCR Not detected (Not Detect) CTX-M Gene Resistance (PCR) Not detected (Not Detect) Urine Dip Bedside Urine Glucose Negative Bedside Urine Bilirubin - Negative Bedside Urine Ketone +++ 80 Urine Specific [place] 1.010 Bedside Urine Occult Blood +++ Bedside Urine pH 6.0 Bedside Urine Protein ++ 100 Bedside Urine Urobilinogen +/- 1mg Bedside Urine Nitrite + Positive Bedside Urine Leukocytes + 70 Esterase Imaging Data MRCP: Radiologist's Impression: PROCEDURE: MR ABDOMEN WO/W CON INDICATIONS: sepsis; dilated CBD on US; has pyelo and pneumonia as well TECHNIQUE: Coronal HASTE, axial 2D FLASH in- and [id number]; axial breath-hold T2 FSE. Dynamic axial VIBE during the administration of contrast; post-contrast coronal VIBE or 2D FLASH with fat saturation from the hepatic dome to the iliac crests. Optional diffusion weighted imaging and ADC may be performed. COMPARISON: [facility], US, US ABDOMEN LIMITED, 06/09/2025, 17:40. [facility], CT, CT CHEST ABD PEL W CON, 06/09/2025, 14:48. FINDINGS: Image quality: Significant respiratory motion artifact degrades image quality. Lung bases: Bibasilar atelectasis. No substantial pleural effusion. Liver: No solid mass. Mild signal dropout on the out of phase images suggestive of mild hepatic steatosis. Gallbladder: Gallbladder appears moderately distended. No evidence to suggest gallbladder wall thickening or hyperemia. No evidence to suggest intraluminal filling defect/gallstones. No pericholecystic inflammation or fluid noted. Biliary ducts: Common bile duct is dilated measuring approximately 1.1 cm in diameter. No intraluminal filling defects identified. There is smooth tapering near the ampulla. There are possible small intraluminal filling defects versus artifact at the bifurcation of the main hepatic duct into the right and left hepatic ducts. Artifact favored. Otherwise, no significant intrahepatic biliary ductal dilatation seen. Pancreas: No ductal dilation. No peripancreatic inflammatory changes. Spleen: Size is within normal limits. Adrenal Glands: No adrenal nodules. Kidneys and Ureters: Heterogeneous enhancement of the right renal parenchyma with moderate right perinephric inflammation. There is also mild diffusion restriction involving the right kidney relative to the left. Findings are consistent with reported pyelonephritis seen on CT from earlier same day. No hydronephrosis. No solid mass. No complex renal cystic lesion which requires follow up. Stomach and Bowel: Normal colonic caliber, without significant wall thickening. No small bowel obstruction identified. Peritoneum: No abnormal intraperitoneal fluid. No free air. Ventral Wall: No hernia. Abdominal Nodes: No retroperitoneal or mesenteric adenopathy by size criteria. Vessels: Aorta and inferior vena cava are normal in size. Bones: No aggressive osseous abnormality. Normal bone marrow signal intensity. IMPRESSION: 1. Moderate gallbladder distension without evidence for acute cholecystitis. No findings to suggest choledocholithiasis. The common bile duct is dilated up to 1.1 cm in diameter without intraluminal filling defects or intraluminal mass lesion. There appears to be smooth tapering near the ampulla of Vater. Suggestion of possible small filling defects within the bifurcation of the main hepatic duct into the right and left hepatic ducts. However, this is favored to represent artifact given significant respiratory motion artifact throughout this examination. Consider further evaluation with ERCP. 2. Heterogeneous enhancement of the right kidney with perinephric inflammatory changes consistent with pyelonephritis as described on prior imaging. 3. Mild hepatic steatosis. Findings were discussed with Dr. Gerard at 0015hrs. Dictated by: William Guzman M.D. on 06/09/2025 at 23:58 MDM Narrative Medical decision making narrative: 54-year-old female, speaks Tagalog, with a past medical history of hypertension, hyperlipidemia, cholecystectomy has not seen a doctor in over a year, is not taking any medications, possibly is supposed to be on a blood thinner who presents to the emergency department with her son for feeling sick x3 days. Patient reports she has been having shaking chills, right-sided upper back/flank pain, nausea vomiting and coughing. Differential diagnosis includes but is not limited to sepsis due to pneumonia, ureterolithiasis, pyelonephritis, gastroenteritis, bronchitis, etc. On exam patient is not in acute distress but she is ill-appearing, she is febrile tachycardic tachypneic, blood pressure is 156/83. She has inspiratory crackles and expiratory wheezes in the right lower lobe, she is reporting right-sided flank pain nausea and vomiting for 3 days. Sepsis order set initiated, we will treat with 30 mL/kilogram IV fluids, 1 g ceftriaxone as at this time I am concerned for possible pneumonia versus pyelo versus other in addition to IV acetaminophen and nausea medications. Upon further history taking, patient's son informed me that patient actually has not had her gallbladder removed but has had gallbladder problems in the past therefore cholecystitis is on the differential. Labs reveal elevated WBC count 11.7, normal platelets 190. Sodium 130, potassium 3.5, BUN 16 creatinine 0.91. Normal lactate 1.2. Elevated procalcitonin 6.0. Normal lipase 34. BNP is elevated 526, troponin is negative/undetectable. Patient has elevated total bilirubin 2.4, AST 41, ALT 50, alkaline phosphatase 128. Repeat physical exam reveals right upper quadrant tenderness. Patient is continuing to have nausea and additional 4 mg Zofran ordered. 1700: On reassessment of patient her pain is significantly improved, perfusion is adequate with brisk cap refill on fingertips. CT reveals abnormal appearance of right kidney suspicious for pyelonephritis, nonobstructing right renal calculus, wall thickening of the urinary bladder, in the chest there are patchy opacities. Overall workup is consistent with pyelonephritis in addition to atypical pneumonia, we will add on azithromycin, patient already received ceftriaxone. We will also obtain right upper quadrant ultrasound to rule out gallbladder abnormality, CT does not reveal abnormality however given elevated bilirubin and reported history of gallbladder problems we will assess prior to disposition. Abdominal ultrasound reveals dilated CBD, consider MRCP, otherwise unremarkable sonographic appearance of the gallbladder, there is heterogeneous increased echogenicity of the liver, nonspecific possibly heterogeneous steatosis, abdominal MRI could clarify. 1900: Discussed ultrasound result with the patient, discussed need for MRCP, she is agreeable, MRCP scheduled for a p.m. tonight, case discussed with the nighttime attending physician Dr. Gerard due ot shift change. Hospitalist supplied natural resources instructor used for all patient encounters. 194 Dr gerard, patient is signed out to me by PAC. Awaiting MRCP results. Patient concern for sepsis, she has elevated procalcitonin of 6.0 leukocytosis of 11 normal lactate of 1.2, she presented today with fever of 102.7 tachycardia and increased respiratory rate. She has been having some right-sided pain some right upper quadrant pain and back pain. Really complaining of some ongoing back pain. There was concern for coli dog cholelithiasis versus pyelonephritis. He has a elevated bilirubin 2.4 was slightly elevated AST and ALT of 41/50. CT did not show any abnormality with gallbladder common bile duct, but did suggest pyelonephritis of the right kidney. Ultrasound right upper quadrant showed dilated common bile duct without evidence of acute cholecystitis. MRCP shows distention of the gallbladder without cholecystitis no evidence of choledocholithiasis common bile duct is 1.1 cm. Again there is right-sided perinephric inflammatory changes Patient has 2 images supporting pyelonephritis and a urine with nitrates and leukocytes. I suspect that she has pyelonephritis over choledocholithiasis. I have been into evaluate patient myself welding equipment repairer services were used. Patient still in pain. Vitals are stable. He has received a dose of Rocephin. On x-ray and testes CT there was concern for possible pneumonia so she was also given azithromycin but not really having any cough. Dr. Noel accepts patient, request 2nd dose of IV Rocephin given Discharge Plan Departure Patient Disposition: Admitted As Inpatient Clinical Impression: Pyelonephritis, Atypical pneumonia Sepsis Qualifiers: Sepsis type: sepsis due to unspecified organism Sepsis acute organ dysfunction status: unspecified Qualified Code(s): A41.9 - Sepsis, unspecified organism Admit Date/Time: 06/10/25 00:51 Admit Provider: Justino Noel ED Sign-out <Rimma Candelaria DO - Last Filed: 06/11/25 00:23> Cosign ED Attending Cosignature Attestation: I was immediately available in the department for consultation. Patient case was reviewed with myself, patient meets sepsis criteria patient's workup showed potential pyelonephritis as well as pneumonia but there was concern with the elevated LFTs so MRCP was obtained as well. Patient was started on IV antibiotics, 30 cc/kilos fluid bolus. Patient signed out to Dr. Gerard while awaiting rest of work up.
[2025-06-09] MEDS: ONDANSETRON 4 MG/2 ML INJ IV ×3 (14:07→21:25)
[2025-06-09] MEDS: ALBUTEROL/IPRATROPIUM 3 ML AMPUL INH (14:07)
[2025-06-09] MEDS: ACETAMINOPHEN IV 1,000 MG/100 ML VIAL 400 MG IV (14:08)
[2025-06-09] MEDS: SODIUM CHLORIDE 0.9% 2,041.17 ML 1360.78 ML IV (14:08)
[2025-06-09 14:21] LABS: Add Manual Diff / Slide Review NO; Hematocrit 44.7 % (36-46); Hemoglobin 14.5 g/dL (12.0-16.0); Lymphocytes Absolute Auto 800 /uL (1100-4500); Mean Corpuscular HGB Conc 32.4 % (30-36); Mean Corpuscular Hemoglobin 24.7 PG (26-34); Mean Corpuscular Volume 76.3 fL (80-100); Platelet Count 190 X10^3/uL (150-400)
[2025-06-09 14:29] LABS: INR 1.2 (0.9-1.3); Prothrombin Time 13.1 SECONDS (9.4-12.5)
[2025-06-09 14:32] LABS: PTT Partial Thromboplastin Tim 35 SECONDS (25.1-36.5)
[2025-06-09 14:35] LABS: Creatine Kinase 89 U/L (30-135); Lactate (Lactic Acid) 1.2 mmol/L (0.7-2.1)
[2025-06-09 14:37] LABS: Alanine Aminotransferase 50 IU/L (<35); Albumin 4.3 g/dL (3.5-5.0); Albumin Globulin Ratio 1.2 (1.0-2.8); Alkaline Phosphatase 128 U/L (38-126); Blood Urea Nitrogen 16 mg/dL (7-17); Calcium 9.3 mg/dL (8.4-10.2); Carbon Dioxide 22 mmol/L (22-32); Chloride 105 mmol/L (98-107); Estimated Glomerular Filt Rate > 60 mL/min (>60); Globulin 3.7 g/dL (1.7-4.1); Glucose 119 mg/dL (70-99); HEMOLYSIS < 15 (0-50); Lipase 34 U/L (23-300); Potassium 3.5 mmol/L (3.4-5.1); Sodium 139 mmol/L (137-145); Total Protein 8.0 g/dL (6.3-8.2)
[2025-06-09 14:46] LABS: NT-proBNP (BNP-Adult 18+) 526 pg/mL (<125)
[2025-06-09 14:48] LABS: Troponin I < 0.012 ng/mL (0.01-0.034)
[2025-06-09 14:53] LABS: Procalcitonin 6.00 ng/mL (<0.5)
[2025-06-09 15:18] LABS: Coronavirus NL 63 Not Detected (Not Detect); SARS- CoV-2 Not Detected (Not Detecte)
[2025-06-09] MEDS: MORPHINE 4 MG/ML INJ IV ×2 (15:25→18:27)
--- NOTE | 2025-06-09 16:47 | PC.NURSE ---
Pt reports she is starting to feel better. States pain is tolerable. Pt up to bedside commode for urine sample. Pt now afebrile at 98.6F via orally
--- NOTE | 2025-06-09 17:02 | DI.US.S_ITS ---
PROCEDURE: US ABDOMEN LIMITED INDICATIONS: sepsis; elevated LFTS; check gallbladder; has pyelo TECHNIQUE: Real-time focused scanning was performed of the abdomen, with image documentation. COMPARISON: [facility], CT, CT CHEST ABD PEL W CON, 06/09/2025, 14:48. FINDINGS: Liver measures 15 cm. Heterogeneous increased echogenicity. Unremarkable ultrasound appearance of the gallbladder. No discrete stones. CBD measures 11 mm. Mildly prominent pancreatic duct at 3 mm. Right kidney is partially seen and appears heterogeneous. Inferior right renal calculus measures 1.4 cm. IMPRESSION: Dilated CBD. Consider MRCP Unremarkable sonographic appearance of the gallbladder. Heterogeneous increased echogenicity of the liver, nonspecific possibly heterogeneous steatosis. Abdominal MRI could clarify if needed. Heterogeneous right kidney with inferior pole calculus better assessed on CT Dictated by: Andrew Song M.D. on 06/09/2025 at 18:23 Approved by: Andrew Song M.D. on 06/09/2025 at 18:26
[2025-06-09] MEDS: AZITHROMYCIN 250 MG TABLET 500 MG PO (17:12)
[2025-06-09 17:18] LABS: Culture Indicated Urine Specimen Cultured
--- NOTE | 2025-06-09 17:45 | PC.NURSE ---
US at bedside
--- NOTE | 2025-06-09 18:36 | DI.MRI.S_ITS ---
PROCEDURE: MR ABDOMEN WO/W CON INDICATIONS: sepsis; dilated CBD on US; has pyelo and pneumonia as well TECHNIQUE: Coronal HASTE, axial 2D FLASH in- and [id number]; axial breath-hold T2 FSE. Dynamic axial VIBE during the administration of contrast; post-contrast coronal VIBE or 2D FLASH with fat saturation from the hepatic dome to the iliac crests. Optional diffusion weighted imaging and ADC may be performed. COMPARISON: [facility], US, US ABDOMEN LIMITED, 06/09/2025, 17:40. [facility], CT, CT CHEST ABD PEL W CON, 06/09/2025, 14:48. FINDINGS: Image quality: Significant respiratory motion artifact degrades image quality. Lung bases: Bibasilar atelectasis. No substantial pleural effusion. Liver: No solid mass. Mild signal dropout on the out of phase images suggestive of mild hepatic steatosis. Gallbladder: Gallbladder appears moderately distended. No evidence to suggest gallbladder wall thickening or hyperemia. No evidence to suggest intraluminal filling defect/gallstones. No pericholecystic inflammation or fluid noted. Biliary ducts: Common bile duct is dilated measuring approximately 1.1 cm in diameter. No intraluminal filling defects identified. There is smooth tapering near the ampulla. There are possible small intraluminal filling defects versus artifact at the bifurcation of the main hepatic duct into the right and left hepatic ducts. Artifact favored. Otherwise, no significant intrahepatic biliary ductal dilatation seen. Pancreas: No ductal dilation. No peripancreatic inflammatory changes. Spleen: Size is within normal limits. Adrenal Glands: No adrenal nodules. Kidneys and Ureters: Heterogeneous enhancement of the right renal parenchyma with moderate right perinephric inflammation. There is also mild diffusion restriction involving the right kidney relative to the left. Findings are consistent with reported pyelonephritis seen on CT from earlier same day. No hydronephrosis. No solid mass. No complex renal cystic lesion which requires follow up. Stomach and Bowel: Normal colonic caliber, without significant wall thickening. No small bowel obstruction identified. Peritoneum: No abnormal intraperitoneal fluid. No free air. Ventral Wall: No hernia. Abdominal Nodes: No retroperitoneal or mesenteric adenopathy by size criteria. Vessels: Aorta and inferior vena cava are normal in size. Bones: No aggressive osseous abnormality. Normal bone marrow signal intensity. IMPRESSION: 1. Moderate gallbladder distension without evidence for acute cholecystitis. No findings to suggest choledocholithiasis. The common bile duct is dilated up to 1.1 cm in diameter without intraluminal filling defects or intraluminal mass lesion. There appears to be smooth tapering near the ampulla of Vater. Suggestion of possible small filling defects within the bifurcation of the main hepatic duct into the right and left hepatic ducts. However, this is favored to represent artifact given significant respiratory motion artifact throughout this examination. Consider further evaluation with ERCP. 2. Heterogeneous enhancement of the right kidney with perinephric inflammatory changes consistent with pyelonephritis as described on prior imaging. 3. Mild hepatic steatosis. Findings were discussed with Dr. Bauer at 0015hrs. Dictated by: William Guzman M.D. on 06/09/2025 at 23:58 Approved by: William Guzman M.D. on 06/10/2025 at 0:20
--- NOTE | 2025-06-09 19:58 | PC.NURSE ---
Pt lying in ED stretcher speaking with family and engages appropriately with RN upon entry into exam room. No distress noted at this time. Continued plan of care discussed, sister helping with translation. No further requests or concerns at this time. Pt remians connected to cardiac, reps, blood pressure, and pulse ox monitors with alarms on and audible. VS stable at this time. Call light within reach. Sister and [id number] remain at bedside.
--- NOTE | 2025-06-09 20:16 | PC.NURSE ---
Pt to MRCP via MRI stretcher with sound technician supervisor
--- NOTE | 2025-06-09 21:17 | PC.NURSE ---
Pt returns from [facility] [place]. With immigration services officer pt states pain is about the same at 2/10, but nausea and weakness are what are the most distressing at this time. Also states hungry. Explained that until all tests have resulted she cannot have anything to eat or drink. Pt reconnected to cardiac, resp, blood pressure, and pulse ox monitors with alarms on and audible. VS stable at this time. Call light within reach. No family at bedside at this time.
[2025-06-10] VITALS (9 sets, daily range): BP systolic 105–124; BP diastolic 58–74; PULSE 76–98; RESP 15–39; TEMP 37.1–37.4; O2SAT 94–99; BMI 30.2
[2025-06-10] MEDS: KETOROLAC 30 MG/ML VIAL 15 MG IV (00:59)
[2025-06-10] MEDS: SODIUM CHLORIDE 0.45% 1,000 ML 100 ML IV ×3 (02:28→23:03)
[2025-06-10 02:54] LABS: Acinetobacter calcoa-baumannii Not Detected (Not Detect); Bacteroides fragilis Not Detected (Not Detect); CTX-M Resistance Not Detected (Not Detect); Candida auris Not Detected (Not Detect); Candida glabrata Not Detected (Not Detect); Cryptococcus neoformans/gatti Not Detected (Not Detect); Enterobacterales Detected (Not Detect); Enterococcus faecalis Not Detected (Not Detect); Enterococcus faecium Not Detected (Not Detect); IMP Resistance Not Detected (Not Detect); KPC Resistance Not Detected (Not Detect); Klebsiella aerogenes Not Detected (Not Detect); NDM Resistance Not Detected (Not Detect); OXA-48-like Resistance Not Detected (Not Detect); Proteus species Not Detected (Not Detect); Serratia marcescens Not Detected (Not Detect); Staphylococcus epidermidis Not Detected (Not Detect); Staphylococcus lugdunensis Not Detected (Not Detect); Staphylococcus species Not Detected (Not Detect); Stenotrophomonas maltophilia Not Detected (Not Detect); Streptococcus agalactiae (Gr B Not Detected (Not Detect); Streptococcus pneumonia Not Detected (Not Detect); Streptococcus pyogenes (Gr A) Not Detected (Not Detect); Streptococcus species Not Detected (Not Detect); VIM Resistance Not Detected (Not Detect); mcr-1 Resistance Not Detected (Not Detect)
--- NOTE | 2025-06-10 03:53 | PM.HP.1 ---
History of Present Illness History of Present Illness Date Patient Seen: 06/09/25 Time Patient Seen: 23:50 Chief complaint: Chills, cold 2 days Narrative: 54-year-old female with past medical history of cholecystectomy, hypertension and hyperlipidemia presents with right flank pain. Per the patient's report, over the last few days, the patient has feeling sick. The patient also have some subjective fever and shaking chills associated with the onset of nausea and vomiting. Patient has some mild coughing but the patient however denies any diarrhea or dysuria. In the emergency room, the patient hemodynamically stable but was requiring 1 L of oxygen per nasal cannula. Lab shows a WBC [place] 0.7 bilirubin 2.4 AST 41 ALT 50 lactate 1.2 procalcitonin 6 UA positive for UTI. CT scan shows possible pyelonephritis and nonobstructing renal calculi. Abdominal ultrasound revealed possible dilated common bile duct and MRCP was ordered which shows no sign of dilated ducts. The patient was given IV ceftriaxone and IV fluid. [facility] Social History household members: spouse, family and children Smoking Status: Never smoker alcohol intake: never Meds Home Medications and Allergies Allergies Allergy/AdvReac Type Severity Reaction Status Date / Time No Known Drug Allergies Allergy Verified 06/09/25 13:51 Review of Systems Review of Systems ROS: Yes All systems reviewed with the patient and are negative except as otherwise documented Exam Vital Signs (past 8 hours): - 06/09/25 20:00 06/09/25 20:00 06/09/25 21:05 Temperature Pulse Rate 80 92 H Respiratory Rate 15 Blood Pressure 111/67 Pulse Oximetry 96 Oxygen Delivery Method Nasal Cannula Oxygen Flow Rate 1 06/09/25 21:11 06/09/25 21:11 06/09/25 21:30 Temperature Pulse Rate 85 Respiratory Rate 32 H Blood Pressure 144/81 H 132/76 Pulse Oximetry 96 Oxygen Delivery Method Nasal Cannula Oxygen Flow Rate 1 06/09/25 21:30 06/09/25 22:00 06/09/25 22:00 Temperature Pulse Rate 84 85 Respiratory Rate 29 H 29 H Blood Pressure 133/72 Pulse Oximetry 97 96 Oxygen Delivery Method Nasal Cannula Nasal Cannula Oxygen Flow Rate 1 1 06/09/25 22:30 06/09/25 22:30 06/09/25 23:00 Temperature Pulse Rate 83 85 Respiratory Rate 14 30 H Blood Pressure 122/66 Pulse Oximetry 98 95 Oxygen Delivery Method Nasal Cannula Nasal Cannula Oxygen Flow Rate 1 1 06/09/25 23:00 06/09/25 23:30 06/09/25 23:30 Temperature Pulse Rate 87 Respiratory Rate 31 H Blood Pressure 120/69 122/67 Pulse Oximetry 96 Oxygen Delivery Method Nasal Cannula Oxygen Flow Rate 1 06/10/25 00:00 06/10/25 00:00 06/10/25 00:13 Temperature Pulse Rate 84 Respiratory Rate 39 H Blood Pressure 117/58 L 115/58 L Pulse Oximetry 96 Oxygen Delivery Method Nasal Cannula Oxygen Flow Rate 1 06/10/25 00:13 06/10/25 00:30 06/10/25 00:30 Temperature Pulse Rate 84 81 Respiratory Rate 30 H 27 H Blood Pressure 116/68 Pulse Oximetry 95 96 Oxygen Delivery Method Nasal Cannula Nasal Cannula Oxygen Flow Rate 1 1 06/10/25 01:00 06/10/25 01:00 06/10/25 01:30 Temperature Pulse Rate 79 Respiratory Rate 19 Blood Pressure 106/64 113/60 Pulse Oximetry 97 Oxygen Delivery Method Nasal Cannula Oxygen Flow Rate 1 06/10/25 01:30 06/10/25 02:50 06/10/25 02:50 Temperature 98.8 F Pulse Rate 76 98 H Respiratory Rate 32 H 18 Blood Pressure 105/61 Pulse Oximetry 97 98 Oxygen Delivery Method Nasal Cannula Nasal Cannula Oxygen Flow Rate 1 Oxygen Delivery Method Nasal Cannula Oxygen Flow Rate 1 Narrative Exam Narrative: Physical Exam: GENERAL: The patient is not in any acute distressed. Awake and alert. HEENT: Nonicteric sclerae, PERRLA, EOMI. Oropharynx clear. Moist mucous membranes. Conjunctivae appear well perfused. HEART: Regular rate and rhythm without murmurs. No lower extremities edema. LUNGS: Clear to auscultation bilaterally. No wheezing, crackles or rhonchi ABDOMEN: Soft, positive bowel sounds, nontender. SKIN: No rash, no excessive bruising, petechiae, or purpura. NEUROLOGIC: AxO x 3. Cranial nerves II-XII intact without motor/sensory deficit. Objective Labs 06/09/25 14:00 06/09/25 14:00 Labs: Laboratory Results - last 24 hr 06/09/25 06/09/25 06/09/25 14:00 14:21 16:50 WBC 11.7 H RBC 5.86 H Hgb 14.5 Hct 44.7 MCV 76.3 L MCH 24.7 L MCHC 32.4 RDW 14.1 Plt Count 190 Neut % (Auto) 88.1 H Lymph % (Auto) 7.1 L [place] % (Auto) 4.2 Eos % (Auto) 0.0 L Baso % (Auto) 0.6 Neut # (Auto) 43191 H Lymph # (Auto) 800 L [place] # (Auto) 500 Eos # (Auto) 0 Baso # (Auto) 100 PT 13.1 H INR 1.2 APTT 35 Sodium 139 Potassium 3.5 Chloride 105 Carbon Dioxide 22 BUN 16 Creatinine 0.91 Estimated GFR > 60 BUN/Creatinine Ratio 17.6 Glucose 119 H Lactate 1.2 Calcium 9.3 Total Bilirubin 2.4 H AST 41 H ALT 50 H Alkaline Phosphatase 128 H Total Creatine Kinase 89 Troponin I < 0.012 NT-Pro-B Natriuret Pep 526 H Total Protein 8.0 Albumin 4.3 Globulin 3.7 Albumin/Globulin Ratio 1.2 Lipase 34 Procalcitonin 6.00 H Urine RBC 1-5/hpf Urine WBC 30-100/hpf H Ur Squamous Epith Cells 1-5 /hpf Ur Transition Epith Cell 0-1/hpf Urine Bacteria Few (2-10) H Ur Culture Indicated? Specimen cultured Vol Urine Centrifuged 10ml (spun) A.calcoaceticus-baumannii cmplx PCR Not detected Chlamy pneumoniae PCR Not detected Adenovirus (PCR) Not detected Bacteroides fragilis Not detected B. pertussis DNA (PCR) Not detected B.parapertussis DNA PCR Not detected Jennie albicans (PCR) Not detected Jennie auris (PCR) Not detected C. glabrata (PCR) Not detected C. krusei (PCR) Not detected C. parapsilosis (PCR) Not detected C. tropicalis (PCR) Not detected Coronavirus OC43 (PCR) Not detected Coronavirus HKU1 (PCR) Not detected Coronavirus 229E (PCR) Not detected SARS-CoV-2 (PCR) Not detected Coronavirus NL63 (PCR) Not detected C. neoform/gattii (PCR) Not detected Enterobacterales (PCR) Detected E. cloacae complex PCR Not detected Enterococc faecalis PCR Not detected Enterococc faecium PCR Not detected E. coli (PCR) Detected H. influenzae (PCR) Not detected Human Metapneumovir PCR Not detected Influenza Type A (PCR) Not detected Influenza Type B (PCR) Not detected Klebsiella aerogenes (PCR) Not detected Klebsiella oxytoca PCR Not detected Klebsiella pneumoniae Not detected List. monocytogenes PCR Not detected M. pneumoniae (PCR) Not detected N. meningitidis (PCR) Not detected Parainfluenza 1 (PCR) Not detected Parainfluenza 2 (PCR) Not detected Parainfluenza 3 (PCR) Not detected Parainfluenza 4 (PCR) Not detected Proteus species (PCR) Not detected RSV (PCR) Not detected Entero/Rhino (PCR) Not detected Salmonella spp. (PCR) Not detected Serratia marcescens PCR Not detected Staphylococcus sp PCR Not detected Staph aureus (PCR) Not detected mecA/C & MREJ Resist Gene Not applicable mecA/C-Methicil Resis Gene Not applicable mcr-1 Colistin Res Gene PCR Not detected Staph epidermidis (PCR) Not detected Staph lugdunensis PCR Not detected S. maltophilia (PCR) Not detected Streptococcus sp PCR Not detected Group A Strep (PCR) Not detected Strep agalactiae (PCR) Not detected Strep pneumoniae (PCR) Not detected P. aeruginosa (PCR) Not detected Ralph/B-Vanco Res Genes Not applicable blaIMP Car res Gene PCR Not detected KPC-Carbap Res Gene PCR Not detected blaNDM Car Res Gene PCR Not detected OXA-48 Carbapenem Resis Gene (PCR) Not detected blaVIM Car Res Gene PCR Not detected CTX-M Gene Resistance (PCR) Not detected Assessment & Plan Assessment & Plan narrative: Pyelonephritis right sided. Admit the patient to medical floor as inpatient. Continue IV ceftriaxone, IV fluid and monitor hemodynamics. Monitor for sepsis. Mild leukocytosis. WBC 11.7. Lactate normal. Likely due to above. Monitor for now. Mild elevated bilirubin and AST ALT. Again MRCP does not show signs of bile duct obstruction. IV fluid and repeat in the morning. Again patient does have a history of cholecystectomy. Hypertension. Monitor blood pressure and resume home medication accordingly Hyperlipidemia. Statin DVT prophylaxis Lovenox CODE STATUS full code. Disposition likely home in 1 to 2 days - As the provider of this telehealth evaluation, requested by the patient's evaluating physician, I attest that I introduced myself to the patient, provided my credentials and determined that telemedicine via a real-time, 2 way interactive audio and video platform is an appropriate and effective means of providing this service. - I reviewed the patient's chart and had a discussion with the member of the patient's treatment team. - The patient and I mutually agreed with continuation of this evaluation via telemedicine. The patient consented for the telemedicine evaluation. - This virtual encounter was taken place from [place] by Dr. Justino Noel. The patient was evaluated at [facility]. The encounter was approximately 35 minutes. The nurse was present during the entire time of the encounter and was able to assists with exam/stethoscope. Time-Based Coding :: [TOTAL MINUTES] spent with patient and on the chart (including review of chart, obtaining history, exam, reviewing outside data, placing orders, documenting exam and treatment plan, and counseling patient) on [DATE].
[2025-06-10 05:10] LABS: Add Manual Diff / Slide Review NO; Hematocrit 38.4 % (36-46); Hemoglobin 12.2 g/dL (12.0-16.0); Lymphocytes Absolute Auto 900 /uL (1100-4500); Mean Corpuscular HGB Conc 31.8 % (30-36); Mean Corpuscular Hemoglobin 24.6 PG (26-34); Mean Corpuscular Volume 77.2 fL (80-100); Platelet Count 164 X10^3/uL (150-400)
[2025-06-10 05:32] LABS: Alanine Aminotransferase 31 IU/L (<35); Albumin 3.2 g/dL (3.5-5.0); Albumin Globulin Ratio 1.0 (1.0-2.8); Alkaline Phosphatase 96 U/L (38-126); Blood Urea Nitrogen 16 mg/dL (7-17); Calcium 8.7 mg/dL (8.4-10.2); Carbon Dioxide 17 mmol/L (22-32); Chloride 112 mmol/L (98-107); Estimated Glomerular Filt Rate > 60 mL/min (>60); Globulin 3.2 g/dL (1.7-4.1); Glucose 87 mg/dL (70-99); HEMOLYSIS < 15 (0-50); Potassium 3.5 mmol/L (3.4-5.1); Sodium 142 mmol/L (137-145); Total Protein 6.4 g/dL (6.3-8.2)
--- NOTE | 2025-06-10 07:59 | P.PN_ITS ---
Subjective Subjective Interval history: From night doctor: 54-year-old female with past medical history of cholecystectomy, hypertension and hyperlipidemia presents with right flank pain. Per the patient's report, over the last few days, the patient has feeling sick. The patient also have some subjective fever and shaking chills associated with the onset of nausea and vomiting. Patient has some mild coughing but the patient however denies any diarrhea or dysuria. In the emergency room, the patient hemodynamically stable but was requiring 1 L of oxygen per nasal cannula. Lab shows a WBC Robinson 0.7 bilirubin 2.4 AST 41 ALT 50 lactate 1.2 procalcitonin 6 UA positive for UTI. CT scan shows possible pyelonephritis and nonobstructing renal calculi. Abdominal ultrasound revealed possible dilated common bile duct and MRCP was ordered which shows no sign of dilated ducts. The patient was given IV ceftriaxone and IV fluid. Overnight events: Did well overnight. S: She was having some epigastric pain after eating a sausage this morning. LFTs have normalized. O: VSS. NAD, alert and oriented. Fluent speech. Lungs are clear, normal rate and effort. Heart is regular, no murmur gallop or rub. Abdomen is soft, non distended. Extremities are free of edema. IMAGING: ABD US: possible dilated common bile duct. (Bili 2.4, now 0.9) CTAP: shows possible pyelonephritis and nonobstructing renal calculi. MRCP: 1. Moderate gallbladder distension without evidence for acute cholecystitis. No findings to suggest choledocholithiasis. The common bile duct is dilated up to 1.1 cm in diameter without intraluminal filling defects or intraluminal mass lesion. There appears to be smooth tapering near the ampulla of Vater. Suggestion of possible small filling defects within the bifurcation of the main hepatic duct into the right and left hepatic ducts. However, this is favored to represent artifact given significant respiratory motion artifact throughout this examination. Consider further evaluation with ERCP. 2. Heterogeneous enhancement of the right kidney with perinephric inflammatory changes consistent with pyelonephritis as described on prior imaging. 3. Mild hepatic steatosis. A/P: 1. Pyelonephritis right sided. Admit the patient to medical floor as inpatient. Continue IV ceftriaxone, IV fluid and monitor hemodynamics. Monitor for sepsis. 2. Mild leukocytosis. WBC 11.7. Lactate normal. Likely due to above. Monitor for now. 3. Mild elevated bilirubin and AST ALT. Again MRCP does not show signs of bile duct obstruction. Gallbladder was distended but not clearly infected. Labs have improved overnight. Bilirubin is normal. 4. Hypertension. Monitor blood pressure and resume home medication accordingly 5. Hyperlipidemia. Statin PLAN: -GI cocktail to see if this improves his epigastric pain. -needs another midnight of IV antibiotics for pyelonephritis. -monitor labs and liver functions. DANIEL: 06/11. DVT prophylaxis Lovenox CODE STATUS full code. Exam Vital Signs (past 8 hours): - 06/10/25 00:00 06/10/25 00:00 06/10/25 00:13 Temperature Pulse Rate 84 Respiratory Rate 39 H Blood Pressure 117/58 L 115/58 L Pulse Oximetry 96 Oxygen Delivery Method Nasal Cannula Oxygen Flow Rate 1 06/10/25 00:13 06/10/25 00:30 06/10/25 00:30 Temperature Pulse Rate 84 81 Respiratory Rate 30 H 27 H Blood Pressure 116/68 Pulse Oximetry 95 96 Oxygen Delivery Method Nasal Cannula Nasal Cannula Oxygen Flow Rate 1 1 06/10/25 01:00 06/10/25 01:00 06/10/25 01:30 Temperature Pulse Rate 79 Respiratory Rate 19 Blood Pressure 106/64 113/60 Pulse Oximetry 97 Oxygen Delivery Method Nasal Cannula Oxygen Flow Rate 1 06/10/25 01:30 06/10/25 02:50 06/10/25 02:50 Temperature 98.8 F Pulse Rate 76 98 H Respiratory Rate 32 H 18 Blood Pressure 105/61 Pulse Oximetry 97 98 Oxygen Delivery Method Nasal Cannula Nasal Cannula Oxygen Flow Rate 1 Oxygen Delivery Method Nasal Cannula Oxygen Flow Rate 1 Objective Labs 06/10/25 04:29 06/10/25 04:29 Labs: Laboratory Results - last 24 hr 06/09/25 06/09/25 06/09/25 14:00 14:21 16:50 WBC 11.7 H RBC 5.86 H Hgb 14.5 Hct 44.7 MCV 76.3 L MCH 24.7 L MCHC 32.4 RDW 14.1 Plt Count 190 Neut % (Auto) 88.1 H Lymph % (Auto) 7.1 L [place] % (Auto) 4.2 Eos % (Auto) 0.0 L Baso % (Auto) 0.6 Neut # (Auto) 56317 H Lymph # (Auto) 800 L [place] # (Auto) 500 Eos # (Auto) 0 Baso # (Auto) 100 PT 13.1 H INR 1.2 APTT 35 Sodium 139 Potassium 3.5 Chloride 105 Carbon Dioxide 22 BUN 16 Creatinine 0.91 Estimated GFR > 60 BUN/Creatinine Ratio 17.6 Glucose 119 H Lactate 1.2 Calcium 9.3 Total Bilirubin 2.4 H AST 41 H ALT 50 H Alkaline Phosphatase 128 H Total Creatine Kinase 89 Troponin I < 0.012 NT-Pro-B Natriuret Pep 526 H Total Protein 8.0 Albumin 4.3 Globulin 3.7 Albumin/Globulin Ratio 1.2 Lipase 34 Procalcitonin 6.00 H Urine RBC 1-5/hpf Urine WBC 30-100/hpf H Ur Squamous Epith Cells 1-5 /hpf Ur Transition Epith Cell 0-1/hpf Urine Bacteria Few (2-10) H Ur Culture Indicated? Specimen cultured Vol Urine Centrifuged 10ml (spun) A.calcoaceticus-baumannii cmplx PCR Not detected Chlamy pneumoniae PCR Not detected Adenovirus (PCR) Not detected Bacteroides fragilis Not detected B. pertussis DNA (PCR) Not detected B.parapertussis DNA PCR Not detected Jennie albicans (PCR) Not detected Jennie auris (PCR) Not detected C. glabrata (PCR) Not detected C. krusei (PCR) Not detected C. parapsilosis (PCR) Not detected C. tropicalis (PCR) Not detected Coronavirus OC43 (PCR) Not detected Coronavirus HKU1 (PCR) Not detected Coronavirus 229E (PCR) Not detected SARS-CoV-2 (PCR) Not detected Coronavirus NL63 (PCR) Not detected C. neoform/gattii (PCR) Not detected Enterobacterales (PCR) Detected E. cloacae complex PCR Not detected Enterococc faecalis PCR Not detected Enterococc faecium PCR Not detected E. coli (PCR) Detected H. influenzae (PCR) Not detected Human Metapneumovir PCR Not detected Influenza Type A (PCR) Not detected Influenza Type B (PCR) Not detected Klebsiella aerogenes (PCR) Not detected Klebsiella oxytoca PCR Not detected Klebsiella pneumoniae Not detected List. monocytogenes PCR Not detected M. pneumoniae (PCR) Not detected N. meningitidis (PCR) Not detected Parainfluenza 1 (PCR) Not detected Parainfluenza 2 (PCR) Not detected Parainfluenza 3 (PCR) Not detected Parainfluenza 4 (PCR) Not detected Proteus species (PCR) Not detected RSV (PCR) Not detected Entero/Rhino (PCR) Not detected Salmonella spp. (PCR) Not detected Serratia marcescens PCR Not detected Staphylococcus sp PCR Not detected Staph aureus (PCR) Not detected mecA/C & MREJ Resist Gene Not applicable mecA/C-Methicil Resis Gene Not applicable mcr-1 Colistin Res Gene PCR Not detected Staph epidermidis (PCR) Not detected Staph lugdunensis PCR Not detected S. maltophilia (PCR) Not detected Streptococcus sp PCR Not detected Group A Strep (PCR) Not detected Strep agalactiae (PCR) Not detected Strep pneumoniae (PCR) Not detected P. aeruginosa (PCR) Not detected Ralph/B-Vanco Res Genes Not applicable blaIMP Car res Gene PCR Not detected KPC-Carbap Res Gene PCR Not detected blaNDM Car Res Gene PCR Not detected OXA-48 Carbapenem Resis Gene (PCR) Not detected blaVIM Car Res Gene PCR Not detected CTX-M Gene Resistance (PCR) Not detected 06/10/25 04:29 WBC 11.3 H RBC 4.97 Hgb 12.2 Hct 38.4 MCV 77.2 L MCH 24.6 L MCHC 31.8 RDW 14.2 Plt Count 164 Neut % (Auto) 86.1 H Lymph % (Auto) 7.9 L [place] % (Auto) 5.7 Eos % (Auto) 0.1 L Baso % (Auto) 0.2 Neut # (Auto) 9800 H Lymph # (Auto) 900 L [place] # (Auto) 600 Eos # (Auto) 0 Baso # (Auto) 0 PT INR APTT Sodium 142 Potassium 3.5 Chloride 112 H Carbon Dioxide 17 L BUN 16 Creatinine 0.78 Estimated GFR > 60 BUN/Creatinine Ratio 20.5 Glucose 87 Lactate Calcium 8.7 Total Bilirubin 0.9 AST 26 ALT 31 Alkaline Phosphatase 96 Total Creatine Kinase Troponin I NT-Pro-B Natriuret Pep Total Protein 6.4 Albumin 3.2 L Globulin 3.2 Albumin/Globulin Ratio 1.0 Lipase Procalcitonin Urine RBC Urine WBC Ur Squamous Epith Cells Ur Transition Epith Cell Urine Bacteria Ur Culture Indicated? Vol Urine Centrifuged A.calcoaceticus-baumannii cmplx PCR Chlamy pneumoniae PCR Adenovirus (PCR) Bacteroides fragilis B. pertussis DNA (PCR) B.parapertussis DNA PCR Jennie albicans (PCR) Jennie auris (PCR) C. glabrata (PCR) C. krusei (PCR) C. parapsilosis (PCR) C. tropicalis (PCR) Coronavirus OC43 (PCR) Coronavirus HKU1 (PCR) Coronavirus 229E (PCR) SARS-CoV-2 (PCR) Coronavirus NL63 (PCR) C. neoform/gattii (PCR) Enterobacterales (PCR) E. cloacae complex PCR Enterococc faecalis PCR Enterococc faecium PCR E. coli (PCR) H. influenzae (PCR) Human Metapneumovir PCR Influenza Type A (PCR) Influenza Type B (PCR) Klebsiella aerogenes (PCR) Klebsiella oxytoca PCR Klebsiella pneumoniae List. monocytogenes PCR M. pneumoniae (PCR) N. meningitidis (PCR) Parainfluenza 1 (PCR) Parainfluenza 2 (PCR) Parainfluenza 3 (PCR) Parainfluenza 4 (PCR) Proteus species (PCR) RSV (PCR) Entero/Rhino (PCR) Salmonella spp. (PCR) Serratia marcescens PCR Staphylococcus sp PCR Staph aureus (PCR) mecA/C & MREJ Resist Gene mecA/C-Methicil Resis Gene mcr-1 Colistin Res Gene PCR Staph epidermidis (PCR) Staph lugdunensis PCR S. maltophilia (PCR) Streptococcus sp PCR Group A Strep (PCR) Strep agalactiae (PCR) Strep pneumoniae (PCR) P. aeruginosa (PCR) Ralph/B-Vanco Res Genes blaIMP Car res Gene PCR KPC-Carbap Res Gene PCR blaNDM Car Res Gene PCR OXA-48 Carbapenem Resis Gene (PCR) blaVIM Car Res Gene PCR CTX-M Gene Resistance (PCR) [facility] Social History household members: spouse, family and children Smoking Status: Never smoker alcohol intake: never Assessment & Plan Time-Based Coding :: [TOTAL MINUTES] spent with patient and on the chart (including review of chart, obtaining history, exam, reviewing outside data, placing orders, documenting exam and treatment plan, and counseling patient) on [DATE].
--- NOTE | 2025-06-10 09:08 | CM.DANOTE ---
Addendum entered by Katrin Fowler RN 06/10/25 11:28: IGIUGIG. Left ear, deaf. Right ear, Hearing Aid. Addendum entered by Katrin Fowler RN 06/10/25 09:13: Pyelonephritis added to Dx. Original Note: Initial DCP Assessment Note. Review EMR and PT Interview. Met with patient at bedside to discuss discharge needs.PT is alert x 4 sitting up in chair. No acute distress. Independent. Lives with spouse and children. Son, Kwadwo, will take patient home upon DC. Kwadwo PH#[phone] Payor:??[facility] PCP: Summary & Plan:?54 yo female arrived to ED via POV c/o Fever and Chillsfor 2 days. Admitted INPT Dx. UTI and Positive Bld Cx. Plan: IVF, IV ABX, and recheck labs. Urine Cx pending. Discharge Planning/Care Management CM Discharge Assessment Start: 06/10/25 02:28 Freq: Status: Active Protocol: Document 06/10/25 09:06 (Rec: 06/10/25 09:07 [id number]) Discharge Planning Assessment Assigned Discharge Katrin Fowler RN CM Traffic Or System Dispatcher Provider [facility] Advance Directives? No History Provided By Patient Has Patient been No admitted in last 30 days? Prior Living Mobile home Arrangements Household Members spouse,family,children Type of Drives own vehicle transporation used prior to admit Independent with ADL Yes 's Is patient alert and Yes oriented? Caregiver for No Another Barriers to No Discharge Referrals Initiated None needed Review Status In Process Please Provide Date 06/10/25 Initial DC Assessment Was Performed Next Review Type Continued Stay Review
[2025-06-10] MEDS: CALCIUM CARBONATE 500 MG TAB 1000 MG PO (10:14)
[2025-06-10] MEDS: ENOXAPARIN 40 MG/0.4 ML SYRINGE SUBCUT (10:15)
[2025-06-10] MEDS: ACETAMINOPHEN 325 MG TABLET 650 MG PO ×2 (10:15→19:01)
[2025-06-10] MEDS: SODIUM CHLORIDE 0.9% FLUSH 10 ML IV ×2 (10:15→21:05)
[2025-06-10] MEDS: POTASSIUM CHLORIDE 20 MEQ TAB 40 MEQ PO (12:32)
[2025-06-10] MEDS: MAG HYDROX/ALUMINUM/SIMETH SUS 30 ML, LIDOCAINE VISCOUS 2% 15 ML PO (12:32)
--- NOTE | 2025-06-10 18:53 | PM.PN.1 ---
Subjective Subjective Interval history: 54 yo female w/HTN, HLD admitted w/R sided pyelonephritis and E coli bacteremia as well as a distended gallbladder but MRCP appears negative for obstruction or cholecystitis. Patient was interviewed via formal respiratory services manager. She denies any rigors. She was able to get some sleep last night. She reports she is feeling quite a bit better overall. She does have some right flank pain but does state that it is better overall. No nausea. No pain with urination. Exam Vital Signs (past 8 hours): Oxygen Delivery Method Nasal Cannula Oxygen Flow Rate 1 Narrative Exam Narrative: GEN: Very pleasant middle-aged female, Alert and oriented x 3, NAD HEENT:NC, Face symmetric CHEST: Respiratory excursions symmetric, CTAB CV: RRR, no M/R/G ABD: Soft, tender to palpation in the right flank, otherwise nontender/ND, BT present in all 4 quadrants, no organomegaly or masses EXTR: warm, well perfused, no C/C/E SKIN: warm and dry, no rash NEURO: Alert and oriented x 3, nonfocal Objective Labs 06/10/25 04:29 06/11/25 04:23 Labs: Laboratory Results - last 24 hr 06/09/25 06/10/25 14:00 04:29 WBC 11.3 H RBC 4.97 Hgb 12.2 Hct 38.4 MCV 77.2 L MCH 24.6 L MCHC 31.8 RDW 14.2 Plt Count 164 Neut % (Auto) 86.1 H Lymph % (Auto) 7.9 L [place] % (Auto) 5.7 Eos % (Auto) 0.1 L Baso % (Auto) 0.2 Neut # (Auto) 9800 H Lymph # (Auto) 900 L [place] # (Auto) 600 Eos # (Auto) 0 Baso # (Auto) 0 Sodium 142 Potassium 3.5 Chloride 112 H Carbon Dioxide 17 L BUN 16 Creatinine 0.78 Estimated GFR > 60 BUN/Creatinine Ratio 20.5 Glucose 87 Calcium 8.7 Total Bilirubin 0.9 AST 26 ALT 31 Alkaline Phosphatase 96 Total Protein 6.4 Albumin 3.2 L Globulin 3.2 Albumin/Globulin Ratio 1.0 A.calcoaceticus-baumannii cmplx PCR Not detected Bacteroides fragilis Not detected Jennie albicans (PCR) Not detected Jennie auris (PCR) Not detected C. glabrata (PCR) Not detected C. krusei (PCR) Not detected C. parapsilosis (PCR) Not detected C. tropicalis (PCR) Not detected C. neoform/gattii (PCR) Not detected Enterobacterales (PCR) Detected E. cloacae complex PCR Not detected Enterococc faecalis PCR Not detected Enterococc faecium PCR Not detected E. coli (PCR) Detected H. influenzae (PCR) Not detected Klebsiella aerogenes (PCR) Not detected Klebsiella oxytoca PCR Not detected Klebsiella pneumoniae Not detected List. monocytogenes PCR Not detected N. meningitidis (PCR) Not detected Proteus species (PCR) Not detected Salmonella spp. (PCR) Not detected Serratia marcescens PCR Not detected Staphylococcus sp PCR Not detected Staph aureus (PCR) Not detected mecA/C & MREJ Resist Gene Not applicable mecA/C-Methicil Resis Gene Not applicable mcr-1 Colistin Res Gene PCR Not detected Staph epidermidis (PCR) Not detected Staph lugdunensis PCR Not detected S. maltophilia (PCR) Not detected Streptococcus sp PCR Not detected Group A Strep (PCR) Not detected Strep agalactiae (PCR) Not detected Strep pneumoniae (PCR) Not detected P. aeruginosa (PCR) Not detected Ralph/B-Vanco Res Genes Not applicable blaIMP Car res Gene PCR Not detected KPC-Carbap Res Gene PCR Not detected blaNDM Car Res Gene PCR Not detected OXA-48 Carbapenem Resis Gene (PCR) Not detected blaVIM Car Res Gene PCR Not detected CTX-M Gene Resistance (PCR) Not detected PFSH Social History household members: spouse, family and children Smoking Status: Never smoker alcohol intake: never Assessment & Plan Assessment & Plan narrative: 1) R pyelonephritis Overall improved. CT did reveal a markedly abnormal appearance of the right kidney with heterogeneous areas of decreased contrast enhancement suggesting pyelonephritis. There is a large calcification in the right inferior pole measuring up to 1.5 cm felt to be a nonobstructing calculus. The right kidney was noted to be ptotic, low-lying and rotated relative to the left. There is mild to moderate right perinephric, proximal periureteral edema. There is mild right hydronephrosis and proximal hydroureter without ureteral or bladder calculus. It was felt these findings were more likely related to UTI with ureteritis rather than a passed stone or other cause of obstruction. There is nonspecific wall thickening of the urinary bladder raising suspicion of cystitis. I did discuss with the patient and her family that the abnormalities of the right kidney may predispose her to infection. She is also postmenopausal and likely has some atrophy which also predisposes her to UTI. Encouraged her to work on increasing her fluid intake to decrease risk of UTI. She states she drinks very little at work throughout the day. She agrees. 2) high-grade pansensitive E coli bacteremia 3/4 blood cultures were positive for pansensitive E coli. Will continue ceftriaxone. Will plan 48 hours of IV antibiotics prior to transitioning to orals. Continued low-grade fevers earlier this morning 99.8. No further shaking chills. 3) Distended gallbladder w/o cholecystitis Reviewed the findings of her enlarged gallbladder on CT, ultrasound, and MRCP. Her daughter notes a ?strong family history? of gallbladder disease. Patient is presently asymptomatic. Advised that the distention of her gallbladder could be related to her current infection verses some gallbladder dysfunction. For now, no intervention needed. 4) Leukocytosis White blood cell count was 11.7 on admission improved at 11.3 yesterday. No labs drawn today. Will repeat labs in the morning. 5) transaminitis Resolved. 6)HTN Blood pressures are presently normotensive. Code status DNR Christy Pollard Dispo Anticipate discharge home tomorrow Time-Based Coding :: [TOTAL MINUTES] spent with patient and on the chart (including review of chart, obtaining history, exam, reviewing outside data, placing orders, documenting exam and treatment plan, and counseling patient) on [DATE].
[2025-06-10] MEDS: cefTRIAXone 2,000 MG in SODIUM CHLORIDE 0.9% 100 ML 200 MG IV (23:36)
[2025-06-11 01:23] VITALS: BP 129/85; PULSE 92; RESP 16; TEMP 37.7; O2SAT 98
[2025-06-11 01:28] VITALS: TEMP 37.7
[2025-06-11] MEDS: ACETAMINOPHEN 325 MG TABLET 650 MG PO ×3 (01:28→18:13)
[2025-06-11 05:13] LABS: Blood Urea Nitrogen 13 mg/dL (7-17); Calcium 8.4 mg/dL (8.4-10.2); Carbon Dioxide 23 mmol/L (22-32); Chloride 109 mmol/L (98-107); Estimated Glomerular Filt Rate > 60 mL/min (>60); Glucose 117 mg/dL (70-99); HEMOLYSIS < 15 (0-50); Potassium 3.7 mmol/L (3.4-5.1); Sodium 138 mmol/L (137-145)
[2025-06-11] MEDS: SODIUM CHLORIDE 0.9% FLUSH 10 ML IV ×2 (10:09→23:34)
[2025-06-11] MEDS: ENOXAPARIN 40 MG/0.4 ML SYRINGE SUBCUT (10:09)
--- NOTE | 2025-06-11 15:28 | CM.DPC ---
DCP Cont: Per MD, pt making progress but needs at least another 24 hours of IV Abx and then likely d/c home with family on po meds. RIOS Nielsen
[2025-06-11 17:00] VITALS: BP 163/90; PULSE 83; RESP 16; TEMP 37; O2SAT 96
[2025-06-11] MEDS: ONDANSETRON 4 MG/2 ML INJ IV (17:31)
[2025-06-11 20:00] VITALS: BP 152/93; PULSE 86; RESP 20; TEMP 37.9; O2SAT 94
[2025-06-11 20:05] VITALS: BP 140/88
[2025-06-11] MEDS: cefTRIAXone 2,000 MG in SODIUM CHLORIDE 0.9% 100 ML 200 MG IV (23:34)
[2025-06-12 01:05] VITALS: TEMP 38.2
[2025-06-12 01:09] VITALS: TEMP 38.2
[2025-06-12] MEDS: ACETAMINOPHEN 325 MG TABLET 650 MG PO (01:09)
[2025-06-12 05:42] LABS: Add Manual Diff / Slide Review NO; Hematocrit 39.5 % (36-46); Hemoglobin 12.9 g/dL (12.0-16.0); Lymphocytes Absolute Auto 1400 /uL (1100-4500); Mean Corpuscular HGB Conc 32.6 % (30-36); Mean Corpuscular Hemoglobin 24.6 PG (26-34); Mean Corpuscular Volume 75.5 fL (80-100); Platelet Count 229 X10^3/uL (150-400)
[2025-06-12 06:05] LABS: Blood Urea Nitrogen 6 mg/dL (7-17); Calcium 8.8 mg/dL (8.4-10.2); Carbon Dioxide 25 mmol/L (22-32); Chloride 108 mmol/L (98-107); Estimated Glomerular Filt Rate > 60 mL/min (>60); Glucose 97 mg/dL (70-99); HEMOLYSIS < 15 (0-50); Potassium 3.7 mmol/L (3.4-5.1); Sodium 141 mmol/L (137-145)
[2025-06-12 09:00] VITALS: BP 160/97; PULSE 80; RESP 16; TEMP 36.5; O2SAT 95
[2025-06-12] MEDS: ENOXAPARIN 40 MG/0.4 ML SYRINGE SUBCUT (09:14)
--- NOTE | 2025-06-12 13:33 | CM.DPC ---
DCP Discharge Home Per MD, pt seems improved on the additional 24 hrs of IV abx and improved on her fluid intake and voiding and medically stable to d/c home with family and no identified barriers to discharge. RN to provide discharge instructions and no concerns noted. RIOS Nielsen
--- NOTE | 2025-06-12 20:53 | PM.DS.1 ---
History of Present Illness History of Present Illness Chief complaint: Chills, cold 2 days Narrative: Per H&P: 54-year-old female with past medical history of cholecystectomy, hypertension and hyperlipidemia presents with right flank pain. Per the patient's report, over the last few days, the patient has feeling sick. The patient also have some subjective fever and shaking chills associated with the onset of nausea and vomiting. Patient has some mild coughing but the patient however denies any diarrhea or dysuria. In the emergency room, the patient hemodynamically stable but was requiring 1 L of oxygen per nasal cannula. Lab shows a WBC [place] 0.7 bilirubin 2.4 AST 41 ALT 50 lactate 1.2 procalcitonin 6 UA positive for UTI. CT scan shows possible pyelonephritis and nonobstructing renal calculi. Abdominal ultrasound revealed possible dilated common bile duct and MRCP was ordered which shows no sign of dilated ducts. The patient was given IV ceftriaxone and IV fluid. Discharge Providers Provider Date of admission: 06/10/25 00:51 Discharge Date: 06/12/25 Primary care physician: Noemi Lu MD Discharge provider: Yumiko Tavarez MD Summary Hospital Course Discharge Diagnosis: 1. Right pyelonephritis, improved 2. High-grade pansensitive E coli bacteremia 3. Floating right kidney 4. Distended gallbladder without cholecystitis, asymptomatic 5. Leukocytosis, improved 6. Transaminitis, resolved 7. Hypertension, stable Hospital Course: Patient presented to the emergency department with fevers, chills, and generally feeling quite unwell. She had right lower quadrant/flank pain, and pain with urination. CT did reveal a markedly abnormal appearance of the right kidney with heterogeneous areas of decreased contrast enhancement suggesting pyelonephritis. There is a large calcification in the right inferior pole measuring up to 1.5 cm felt to be a nonobstructing calculus. The right kidney was noted to be ptotic, low-lying and rotated relative to the left. There is mild to moderate right perinephric, proximal periureteral edema. There is mild right hydronephrosis and proximal hydroureter without ureteral or bladder calculus. It was felt these findings were more likely related to UTI with ureteritis rather than a passed stone or other cause of obstruction. There is nonspecific wall thickening of the urinary bladder raising suspicion of cystitis. Urine cultures were negative at the time of discharge. Blood cultures revealed high-grade pansensitive E coli. She remained in the hospital for 48 hours on IV ceftriaxone. At the time of discharge she is transitioning to oral Cipro. She was found as noted to have a floating right kidney. She continued to have pain in her right lower quadrant consistent with the location of the floating kidney. She did have evidence of a nonobstructing kidney stone in the inferior pole of the right kidney. She is encouraged to follow-up with urology to ensure that the findings of her floating right kidney and the kidney stone are not predisposing her to infection, nor that any intervention is required. She was having ongoing pain at the time of discharge. She is encouraged to stay out of work until June 20. She may need to return to work on light duty if she continues to have pain. The return to work note she was given was for full duty. However I advised her to follow-up with her PCP if she remains significantly painful and request a light duty work for note at that time. Patient is discharged in stable condition. Status at Discharge Cognitive/behavioral status at discharge: oriented Functional status at discharge: independent ambulation Overall status at discharge: patient is progressing back to baseline Exam Vital Signs (past 8 hours): Oxygen Delivery Method Room Air Oxygen Flow Rate 0 Narrative Exam Narrative: GEN: Very pleasant middle-aged female, Alert and oriented x 3, NAD HEENT:NC, Face symmetric CHEST: Respiratory excursions symmetric, CTAB CV: RRR, no M/R/G ABD: Soft, minimally tender to palpation in the right flank, otherwise nontender/ND, BT present in all 4 quadrants, no organomegaly or masses EXTR: warm, well perfused, no C/C/E SKIN: warm and dry, no rash NEURO: Alert and oriented x 3, nonfocal Objective Labs 06/12/25 04:29 06/12/25 04:29 Labs: Laboratory Results - last 24 hr 06/12/25 04:29 WBC 7.9 RBC 5.22 H Hgb 12.9 Hct 39.5 MCV 75.5 L MCH 24.6 L MCHC 32.6 RDW 14.5 Plt Count 229 Neut % (Auto) 72.2 Lymph % (Auto) 18.4 L [place] % (Auto) 7.8 Eos % (Auto) 0.9 L Baso % (Auto) 0.7 Neut # (Auto) 5700 Lymph # (Auto) 1400 [place] # (Auto) 600 Eos # (Auto) 100 Baso # (Auto) 100 Sodium 141 Potassium 3.7 Chloride 108 H Carbon Dioxide 25 BUN 6 L Creatinine 0.67 Estimated GFR > 60 BUN/Creatinine Ratio 9.0 Glucose 97 Calcium 8.8 PFSH Social History household members: spouse, family and children Smoking Status: Never smoker alcohol intake: never Discharge Plan Discharge Plan Patient Disposition: Home Provider Discharge Comment: You were admitted with right-sided pyelonephritis (infection of the right kidney) with bacteria having spread from the kidney anterior blood stream. The bacteria as we discussed was E coli. This is a fairly typical bacteria that gets into the urinary tract. It was sensitive to all of the antibiotics it was tested against. You did have a kidney stone in the right kidney which was not causing any blockage, so is not likely to be causing any of the infection problem. Your right kidney is also laying lower in the pelvis than your left which could be causing some discomfort and may have put you at risk for infection. Please take your antibiotics until they are gone. Add yogurt or probiotics to reduce your risk of antibiotic associated diarrhea. I recommend you establishing consult with a urologist to ensure there is no follow-up needed for the right kidney. Return to the ED: Increased shortness of breath/chest pain. Inability to hold down food/fluids/medications. Fevers/chills. Discharge orders & Medications Prescriptions: New ciprofloxacin HCl 500 mg tablet 500 mg PO BID Qty: 20 0RF Follow up/Referrals: Noemi Lu MD [Primary Care Provider, Family Practice] Discharge Health Status Multidrug resistant organism: No MDRO Diet/Activity/Treatments Diet: Diet as Tolerated Activity: As tolerated Oxygen: N/A Skin/Wound/Dressing Care Report to your healthcare provider any signs of infection, such as:: chills, fever, night sweats and increased pain Visit Report/Discharge Packet Instructions: DI for Kidney Infection Stand Alone Forms: Patient Portal/API, Stroke Signs & Symptoms, Work/Release Restrictions Discharge Data Primary Care Provider: Noemi Lu
== END 2025-06-12 13:31 | disposition home or self-care (01) | DRG 872 ==
LOC: ED 06-10 00:51 → AC 06-10 00:52 → ICU 06-10 01:25
PROVIDERS: Family Medicine; Pharmacist Pharmacist Clinician (PhC)/ Clinical Pharmacy Specialist; Physician Assistant; Admitting Provider Internal Medicine; Emergency Provider Emergency Medicine; PCP Family Medicine; Referring Provider Emergency Medicine; Visit Provider Internal Medicine
DX: A41.9 Sepsis, unspecified organism (principal); N13.6 Pyonephrosis; N20.0 Calculus of kidney; I10 Essential (primary) hypertension; E78.5 Hyperlipidemia, unspecified; B96.20 Unspecified Escherichia coli [E. coli] as the cause of diseases classified elsewhere; R74.01 Elevation of levels of liver transaminase levels; N28.89 Other specified disorders of kidney and ureter; K82.8 Other specified diseases of gallbladder; Z66 Do not resuscitate
CPT/HCPCS: 36415; 71045; 71260; 74177; 74183; 76705; 80048; 80053; 81003; 81015; 82550; 83605; 83690; 83880; 84145; 84484; 85025; 85610; 85730; 87040; 87077; 87086; 87154; 87186; 87633; 93005; 96361; 96365; 96366; 96368; 96375; 96376; 99285; A9579; J0131; J0696; J1650; J1885; J2272; J2405; J7030; J7050; Q9967